=== PATIENT | female | born 1980 | race Caucasian/White ===

== ENCOUNTER 2017-08-28 15:19 | Emergency (ER) | payer OTHER, SELFPAY ==
[2017-08-28 15:46] VITALS: BP 110/74; PULSE 94; RESP 20; TEMP 36.9; O2SAT 99; BMI 18.9
--- NOTE | 2017-08-28 16:36 | HMH.EDUTC ---
[facility] [place] Disposition Clinical Impression: Medication refill Disposition: Home, Self-Care Condition on Discharge: Good Additional Instructions: Levothyroxine refill sent to Clinic pharmacy as you requested. As you know, it will be Wednesday before you can have this filled. Lamictal, abilify and prozac all have one remaining refill. You can request that Clinic pharmacy call and transfer your refill from the old pharmacy to Clinic Trazodone you report having more at home. Use those until you new pt appointment. Dextroamphetamine and zenzedi are both stimulants. I will not refill these. You will need a primary care provider to psychiatrist to do so. If you change your mind about primary care providers and you want me to try to get you in sooner with the [facility] physician group, call and let me know. I have provided Dr. Hood' number so call them wednesday for new patient appt Prescriptions: Levothyroxine Sodium [Levothyroxine 125mcg (0.125mg) Tab] 125 mcg PO DAILY #30 tab Referrals: Maycol Hood MD [Staff Physician] - (if this is where you wish to go, call them Wednesday and make a new patient appt. Keep appt with [facility] on 09/02) Time of Disposition: 16:53 Medical Decision Making - Nimesh Inquiry Pt receiving controlled substance: No Vital Signs: 08/28/17 15:46 08/28/17 16:49 Temperature 98.5 F 98.6 F Temperature Source Temporal Artery Scan Pulse Rate 92 H Pulse Rate [Right Radial] 94 H Respiratory Rate 20 18 Blood Pressure 108/85 Blood Pressure [Right Arm] 110/74 Blood Pressure Mean [Right Arm] 86 Blood Pressure Source [Right Arm] Automatic Cuff Blood Pressure Position [Right Arm] Sitting 02 Sat by Pulse Oximetry 99 Oxygen Delivery Method Room Air Room Air - Reevaluation(s) Reevaluation #1: Discussed list of medications w/ patient. Rvwd all the empty bottles patient brought. Lamictal last filled 07/14 has one refill remaining Abilify last filled 07/14/17, has one refill remaining Prozac last filled 07/14/17, has one refill remaining Trazodone last filled 07/14/17, bottle empty but pt reports she has several more at home from where some nights she doesn't need them so doesn't need refill Levothyroxine last filled 07/14, no refill remaining dextroamphetamine LF 05/31/17 and zenzedi last filled 06/23/17, both with no refills remaining, pt aware stimulants and I will not refill. I don't really need those. That isn't the ones I am worried about. Offered to get patient in to my lpn or medical assistant's primary care office next week. pt politely declined. Wants to try to get appt w/ spouse's PCP, Dr. Hood. [facility] [place] HPI - General Stated complaint: needs refill Time Seen by Provider: 08/28/17 16:36 Mode of Arrival: Family Vehicle Source of Information: Patient Limitations: No Limitations Description of Symptoms (Recalled from Triage Doc. by RN): PT STATES SHE NEEDS A MEDICATION REFILL. HEENT Symptoms (Recalled from RN notes): No Resp Symptoms (Recalled from RN notes): No Skin Symptoms (Recalled from RN notes): No MS Symptoms (Recalled from RN notes): No Functional Status (Recalled from RN notes): NA - History of Present Illness Provider Complaint: Here today for refills of medication. Previously lived here and used a PCP in [place] and [facility]. Moved to another State when her and her spouse seperated and used a PCP and similar type psych facility there. Just moved back here weeks ago when her and her spouse got back together. No PCP currently but has appt with [facility] on 09/02. Out of medications x 1-2 weeks. Requesting refills. denies AH, VH, SI, HI. - Related Data Previous Rx's Medication Instructions Recorded Levothyroxine Sodium 125 mcg PO DAILY #30 tab 08/28/17 [Levothyroxine 125mcg (0.125mg) Tab] Allergies Allergy/AdvReac Type Severity Reaction Status Date / Time No Known Allergies Allergy Verified 08/28/17 15:49 - Worker's Comp Is this a Worker's Comp case?: No [facility] History I h
--- NOTE | 2017-08-28 16:47 | ED_ITS ---
[facility] [place] [place] Disposition Clinical Impression: Medication refill Disposition: Home, Self-Care Condition on Discharge: Good Additional Instructions: Levothyroxine refill sent to Clinic pharmacy as you requested. As you know, it will be Wednesday before you can have this filled. Lamictal, abilify and prozac all have one remaining refill. You can request that Clinic pharmacy call and transfer your refill from the old pharmacy to Clinic Trazodone you report having more at home. Use those until you new pt appointment. Dextroamphetamine and zenzedi are both stimulants. I will not refill these. You will need a primary care provider to psychiatrist to do so. If you change your mind about primary care providers and you want me to try to get you in sooner with the [facility] physician group, call and let me know. I have provided Dr. Hood' number so call them wednesday for new patient appt Prescriptions: Levothyroxine Sodium [Levothyroxine 125mcg (0.125mg) Tab] 125 mcg PO DAILY #30 tab Referrals: Maycol Hood MD [Staff Physician] - (if this is where you wish to go, call them Wednesday and make a new patient appt. Keep appt with [facility] on 09/02) Time of Disposition: 16:53 Medical Decision Making - Nimesh Inquiry Pt receiving controlled substance: No Vital Signs: 08/28/17 15:46 08/28/17 16:49 Temperature 98.5 F 98.6 F Temperature Source Temporal Artery Scan Pulse Rate 92 H Pulse Rate [Right Radial] 94 H Respiratory Rate 20 18 Blood Pressure 108/85 Blood Pressure [Right Arm] 110/74 Blood Pressure Mean [Right Arm] 86 Blood Pressure Source [Right Arm] Automatic Cuff Blood Pressure Position [Right Arm] Sitting 02 Sat by Pulse Oximetry 99 Oxygen Delivery Method Room Air Room Air - Reevaluation(s) Reevaluation #1: Discussed list of medications w/ patient. Rvwd all the empty bottles patient brought. Lamictal last filled 07/14 has one refill remaining Abilify last filled 07/14/17, has one refill remaining Prozac last filled 07/14/17, has one refill remaining Trazodone last filled 07/14/17, bottle empty but pt reports she has several more at home from where some nights she doesn't need them so doesn't need refill Levothyroxine last filled 07/14, no refill remaining dextroamphetamine LF 05/31/17 and zenzedi last filled 06/23/17, both with no refills remaining, pt aware stimulants and I will not refill. I don't really need those. That isn't the ones I am worried about. Offered to get patient in to my medical detail representative's primary care office next week. pt politely declined. Wants to try to get appt w/ spouse's PCP, Dr. Hood. [facility] [place] [place] HPI - General Stated complaint: needs refill Time Seen by Provider: 08/28/17 16:36 Mode of Arrival: Family Vehicle Source of Information: Patient Limitations: No Limitations Description of Symptoms (Recalled from Triage Doc. by RN): PT STATES SHE NEEDS A MEDICATION REFILL. HEENT Symptoms (Recalled from RN notes): No Resp Symptoms (Recalled from RN notes): No Skin Symptoms (Recalled from RN notes): No MS Symptoms (Recalled from RN notes): No Functional Status (Recalled from RN notes): NA - History of Present Illness Provider Complaint: Here today for refills of medication. Previously lived here and used a PCP in [place] and [facility]. Moved to another State when her and her spouse seperated and used a PCP and similar type psych facility there. Just moved back here weeks ago when her and her spouse got back together. No PCP currently but has appt wit
[2017-08-28 16:49] VITALS: BP 108/85; PULSE 92; RESP 18; TEMP 37; O2SAT 100
== END 2017-08-28 16:55 | disposition home or self-care (01) ==
PROVIDERS: Emergency Provider Nurse Practitioner Family
DX: F20.9 Schizophrenia, unspecified (principal); F31.9 Bipolar disorder, unspecified; F32.9 Major depressive disorder, single episode, unspecified; F90.9 Attention-deficit hyperactivity disorder, unspecified type; E03.9 Hypothyroidism, unspecified
CPT/HCPCS: 99201

== ENCOUNTER 2017-08-31 19:35 | Emergency (ER) | payer OTHER, SELFPAY ==
[2017-08-31 19:50] VITALS: BP 118/79; PULSE 80; RESP 16; TEMP 36.9; O2SAT 100; BMI 18.9
--- NOTE | 2017-08-31 20:07 | CT_ITS ---
CT abdomen pelvis wo con CLINICAL INDICATION: Abdominal pain with nausea and vomiting, stomach pain ITS.REASON: vomiting ORDERING PHYSICIAN: Med Da Silva MD PATIENT AGE: 36 years COMPARISON: None TECHNIQUE: Axial images obtained with sagittal and coronal reformats. PROCEDURE: Oral Contrast: None IV Contrast: None . FINDINGS: Lung bases are clear. 5 mm isodensity involving the hepatic dome posteriorly on the right measuring -59 Hounsfield units consistent with a lipoma. No radio opaque gallstones. The spleen, adrenal glands, pancreas, and kidneys have an unremarkable unenhanced CT appearance. No obstructing renal or ureteral calculi. There is mild distention of the stomach with residual food particles and/or secretions There are fluid-filled loops of small and large bowel with scattered air-fluid levels. The bowel does not appear significantly distended. Enterocolitis is considered. There may be some mild mucosal thickening of the duodenum. No free air. No evidence of appendicitis. There are multiple unopacified bowel loops present within the abdomen/pelvis which could obscure or mimic pathology. If symptoms persists, consider repeating exam with IV and oral contrast administration. The uterus has somewhat prominent appearance as does the right adnexa. Pelvic ultrasound may be of further value. There is a small amount fluid in the pelvis. No acute bony anomalies are evident. IMPRESSION: 1. Scattered air-fluid levels in both large and small bowel. Ileus and/or enterocolitis is considered. The stomach is slightly distended with retained food particles. 2. Mildly prominent uterus and right ovary with small amount fluid in the cul-de-sac. Pelvic ultrasound may be of further value. 3. Small lipoma of the liver
--- NOTE | 2017-08-31 20:17 | HMH.EDNVD ---
ED Disposition Clinical Impression: Gastroenteritis, Duodenitis Disposition: Home, Self-Care Condition on Discharge: Good Instructions: DI for Vomiting -- Adult Additional Instructions: fluids and see pcp for follow up Prescriptions: Ondansetron HCl [Zofran 4mg Tab] 4 mg PO TID #20 tab Referrals: Provider,Referral, [Primary Care Provider] - - Critical Care Critical Care Time: No Attestation: On 08/31/17, the high probability of a clinically significant, sudden or life threatening deterioration of the following system(s) required my full and direct attention, intervention and personal management. The time I documented below is in addition to time spent performing reported procedures but includes the following listed in this critical care notation. Medical Decision Making - Medical Records Medical records reviewed: Yes: I reviewed the patient's medical records. - Nimesh Inquiry Pt receiving controlled substance: No Vital Signs: 08/31/17 19:50 09/01/17 00:06 Temperature 98.5 F Temperature Source Oral Pulse Rate [Right Radial] 80 90 Respiratory Rate 16 16 Blood Pressure [Right Arm] 118/79 119/85 Blood Pressure Mean [Right Arm] 92 96 Blood Pressure Source [Right Arm] Automatic Cuff Automatic Cuff Blood Pressure Position [Right Arm] Sitting Sitting 02 Sat by Pulse Oximetry 100 96 Oxygen Delivery Method Room Air Room Air - Lab Data Lab results reviewed: Yes: I reviewed the patient's lab results. Lab Results 08/31/17 20:00: WBC 6.3, RBC 4.80, Hgb 11.1 L, Hct 37.4, MCV 77.8 L, MCH 23.1 L, MCHC 29.7 L, RDW 14.8, Plt Count 339, MPV 7.7, Neut % (Auto) 79.9, Lymph % (Auto) 13.9, Pitt % (Auto) 4.4, Eos % (Auto) 1.5, Baso % (Auto) 0.3, Neut # (Auto) 5.0, Lymph # (Auto) 0.9, [place] # (Auto) 0.3, Eos # (Auto) 0.1, Baso # (Auto) 0.0 08/31/17 20:00: Sodium 137, Potassium 3.4 L, Chloride 102, Carbon Dioxide 28, Anion Gap 10.4, BUN 7, Creatinine 0.80, Estimated Creat Clear 74, Estimated GFR 81, Est GFR ( Amer) 98, Glucose 86, Calcium 8.4 L, Total Bilirubin 0.3, AST 14 L, ALT 17, Alkaline Phosphatase 49, Total Protein 7.4, Albumin 3.7, Globulin 3.7 H, Albumin/Globulin Ratio 1.0 L, Amylase 36, Lipase 118, TSH 15.18 H, Thyroxine (T4) 5.5 08/31/17 20:00: ESR 15 08/31/17 20:22: Urine Color Yellow, Urine Appearance Sl cloudy, Urine pH 6.5, Ur Specific [place] 1.020, Urine Protein Negative, Urine Glucose (UA) Negative, Urine Ketones 1+, Urine Blood Negative, Urine Nitrate Negative, Urine Bilirubin 1+ A, Urine Urobilinogen 0.2, Ur Leukocyte Esterase Trace, Urine RBC Occasional, Urine WBC 10-20, Ur Squamous Epith Cells 5-10, Urine Bacteria 3+, Urine Mucus 3+ 08/31/17 21:39: Stl Aeromonas (PCR) Not detected, Stl C. cayetanensis PCR Not detected, Stool Rotavirus (PCR) Not detected, Stl Adenov F 40/41 PCR Not detected, Stool Astrovirus (PCR) Not detected, Stool Campylobacter PCR Not detected, Stl C.difficile Tox PCR Not detected, Stool Cryptosporidium PCR Not detected, Stl E.coli Shiga Tox PCR Not detected, Stool E coli O157 PCR Not detected, Stl Enterotoxigenic E PCR Not detected, Stool EPEC (PCR) Not detected, Stool EAEC (PCR) Not detected, Stl E. histolytica PCR Not detected, Stool Giardia Lamblia PCR Not detected, Stool Salmonella PCR Not detected, Stool Sapovirus (PCR) Not detected, Stl P. shigelloides PCR Not detected, Stl Shigella/EIEC PCR Not detected, St Y.enterocolitica PCR Not detected, Stool Vibrio (PCR) Not detected, Stl Vibrio cholerae PCR Not detected, Stl Norovirus GI/GII PCR Not detected Result diagrams: 08/31/17 20:00 08/31/17 20:00 Orders (Tests/Meds): ED MEDICATIONS Discontinued Medications Generic Name Dose Route Start Last Admin Trade Name Freq PRN Reason Stop Dose Admin Famotidine 20 mg 09/01/17 00:57 09/01/17 01:06 Pepcid 20mg/2ml Vial IV 09/01/17 00:58 20 mg ONCE ONE Administration Sodium Chloride 1,000 mls @ 999 mls/hr 08/31/17 20:15 08/31/17 20:09 Sod Chlor 0.9% 1000ml Bag
[2017-08-31 20:21] LABS: Basophils % 0.3 % (0.1-2.0); Eosinophils # 0.1 K/mm3 (0.0-0.4); Eosinophils % 1.5 % (0.1-12.0); Hematocrit 37.4 % (37.0-47.0); Hemoglobin 11.1 g/dL (12.2-16.2); Lymphocytes # 0.9 K/mm3 (0.7-4.5); Lymphocytes % 13.9 K/mm3 (10-50); Mean Corpuscular HGB Conc 29.7 g/dL (31.8-35.4); Mean Corpuscular Hemoglobin 23.1 pg (27.0-31.2); Mean Corpuscular Volume 77.8 fl (81-99); Mean Platelet Volume 7.7 fl (7.4-10.4); Monocytes # 0.3 K/mm3 (0.1-1.0); Monocytes % 4.4 % (1.7-9.3); Neutrophils % 79.9 % (37.0-80.0); Platelet Count 339 K/mm3 (142-424); Red Cell Distribution Width 14.8 % (11.5-17.5); White Blood Count 6.3 K/mm3 (4.8-10.8)
[2017-08-31 20:24] LABS: Microscopic, Urine URINE MICROSCOPIC (MICROSCOPIC)
[2017-08-31 20:28] LABS: Appearance,Urine SL CLOUDY (Clear); Blood, Urine Negative (Negative); Color,Urine YELLOW (Yellow); Glucose,Urine (UA) Negative (Negative); Ketones,Urine 1+ (Negative); Leukocyte Esterase,Urine TRACE (Negative); Nitrate,Urine Negative (Negative); PH,Urine 6.5 (5.0-8.5); Protein,Urine Negative (Negative); Urobilinogen,Urine 0.2 EU/dl (0.2)
[2017-08-31 20:31] LABS: Bilirubin,Urine 1+ (Negative)
[2017-08-31 20:42] LABS: Alanine Aminotransferase 17 U/L (12-78); Albumin Level 3.7 gm/dL (3.4-5.0); Alkaline Phosphatase 49 U/L (46-116); Amylase 36 U/L (25-125); Anion Gap 10.4 mEq/L (5-15); Aspartate Amino Transferase 14 U/L (15-37); Bilirubin,Total 0.3 mg/dL (0.2-1.0); Blood Urea Nitrogen 7 mg/dL (7-18); Calcium 8.4 mg/dL (8.5-10.1); Carbon Dioxide 28 mmol/L (21.0-32.0); Chloride 102 mmol/L (98-107); Creatinine Clearance Estimated 74 mL/min (0-300); Estimated Glomerular Filt Rate 81 ml/min (>60); GFR (African American) 98 ML/MIN (>60); Globulin 3.7 gm/dl (1.3-3.2); Glucose 86 mg/dL (74-106); Lipase 118 u/L (73-393); Potassium 3.4 mmoL/L (3.5-5.1); Sodium 137 mmol/L (136-145); T4 (Thyroxine) 5.5 ug/dl (4.7-13.3); Thyroid Stimulating Hormone 15.18 uIU/ml (0.358-3.740); Total Protein,Serum 7.4 gm/dL (6.4-8.2)
[2017-08-31 20:52] LABS: Bacteria,Urine 3+ /lpf; Mucus,Urine 3+ /lpf; RBC,Urine Occasional #/hpf (0-3)
[2017-08-31 21:42] LABS: Adenovirus F 40/41, stool Not Detected (NotDetected); Astrovirus Not Detected (NotDetected); Campylobacter Not Detected (NotDetected); Clostridium Difficile A/B, PCR Not Detected (NotDetected); Cryptosporidium Not Detected (NotDetected); Cyclospora Cayetanesis Not Detected (NotDetected); Entamoeba histolytica Not Detected (NotDetected); Enteroaggregative E coli Not Detected (NotDetected); Enteropathogenic E coli Not Detected (NotDetected); Enterotoxigenic E coli Not Detected (NotDetected); Giardia lamblia Not Detected (NotDetected); Norovirus Not Detected (NotDetected); Plesimonas Shigalloides, PCR Not Detected (NotDetected); Rotavirus A Not Detected (NotDetected); Salmonella, PCR Not Detected (NotDetected); Sapovirus Not Detected (NotDetected); Shiga-like toxin E coli Not Detected (NotDetected); Shigella Enterovasive E coli Not Detected (NotDetected); Vibrio Cholerae Not Detected (NotDetected); Vibrio, PCR Not Detected (NotDetected); Yersinia Entercolitica, PCR Not Detected (NotDetected)
[2017-08-31 22:55] LABS: Erythrocyte Sedimentation Rate 15 mm/hr (0-20)
[2017-09-01 00:06] VITALS: BP 119/85; PULSE 90; RESP 16; O2SAT 96
--- NOTE | 2017-09-01 01:11 | PC.NURSE ---
pt given ice chips per dr christie order to see if patient could tolerate keeping po fluids down
[2017-09-01 01:36] VITALS: BP 121/79; PULSE 85; RESP 17; TEMP 36.6; O2SAT 100
== END 2017-09-01 01:37 | disposition home or self-care (01) ==
PROVIDERS: Emergency Medicine; Emergency Provider Emergency Medicine
DX: K52.9 Noninfective gastroenteritis and colitis, unspecified (principal); K29.80 Duodenitis without bleeding; E03.9 Hypothyroidism, unspecified; F90.9 Attention-deficit hyperactivity disorder, unspecified type; F32.9 Major depressive disorder, single episode, unspecified; Z87.891 Personal history of nicotine dependence; F31.31 Bipolar disorder, current episode depressed, mild; Z79.899 Other long term (current) drug therapy
CPT/HCPCS: 74176; 80053; 81001; 82150; 83690; 84436; 84443; 85025; 85651; 87086; 87507; 96365; 96366; 99211; 99284; J2405

== ENCOUNTER → 2017-10-27 09:01 | Outpatient (CLI) | payer MEDICAID, SELFPAY ==
[2017-10-27 10:03] LABS: Hemoglobin A1C 4.5 % (0.0-7.0)
[2017-10-27 11:01] LABS: Basophils % 0.7 % (0.1-2.0); Eosinophils # 0.2 K/mm3 (0.0-0.4); Eosinophils % 6.1 % (0.1-12.0); Hematocrit 35.7 % (37.0-47.0); Hemoglobin 10.7 g/dL (12.2-16.2); Lymphocytes # 0.9 K/mm3 (0.7-4.5); Lymphocytes % 29.1 K/mm3 (10-50); Mean Corpuscular Volume 76.5 fl (81-99); Mean Platelet Volume 8.1 fl (7.4-10.4); Monocytes # 0.2 K/mm3 (0.1-1.0); Monocytes % 4.7 % (1.7-9.3); Neutrophils # 1.9 K/mm3 (1.8-7.8); Neutrophils % 59.4 % (37.0-80.0); Platelet Count 312 K/mm3 (142-424); Red Blood Count 4.66 M/mm3 (4.20-5.40); Red Cell Distribution Width 15.5 % (11.5-17.5); White Blood Count 3.2 K/mm3 (4.8-10.8)
[2017-10-27 11:14] LABS: Free Thyroxine Index 2.9 ug/dL (5.93-13.13); T4 (Thyroxine) 8.7 ug/dl (4.7-13.3); Triiodothryronine (T3) Uptake 33 % (31-39)
[2017-10-27 11:15] LABS: Alanine Aminotransferase 18 U/L (12-78); Albumin Level 3.7 gm/dL (3.4-5.0); Albumin/Globulin Ratio 1.2 (1.1-1.8); Alkaline Phosphatase 50 U/L (46-116); Anion Gap 13.6 mEq/L (5-15); Aspartate Amino Transferase 14 U/L (15-37); Bilirubin,Total 0.3 mg/dL (0.2-1.0); Blood Urea Nitrogen 12 mg/dL (7-18); Calcium 8.7 mg/dL (8.5-10.1); Carbon Dioxide 26 mmol/L (21.0-32.0); Chloride 106 mmol/L (98-107); Chol/HDL Ratio 2.2 (1-3.5); Cholesterol 187 mg/dL (140-200); Creatinine,Serum 0.74 mg/dL (0.55-1.02); Estimated Glomerular Filt Rate 89 ml/min (>60); GFR (African American) 107 ML/MIN (>60); Globulin 3.2 gm/dl (1.3-3.2); Glucose 88 mg/dL (74-106); HDL Cholesterol 86 mg/dL (29-89); LDL Cholesterol 90 mg/dL (0-130); Potassium 4.6 mmoL/L (3.5-5.1); Sodium 141 mmol/L (136-145); Total Protein,Serum 6.9 gm/dL (6.4-8.2); Triglycerides 55 mg/dL (30-200); VLDL Cholesterol 11 mg/dL (0-40)
== END ==
PROVIDERS: Family Medicine; Visit Provider Psychiatry & Neurology Psychiatry
DX: F25.0 Schizoaffective disorder, bipolar type (principal); E89.0 Postprocedural hypothyroidism
CPT/HCPCS: 36415; 80053; 80061; 83036; 84436; 84443; 84479; 85025

== ENCOUNTER → 2018-01-27 12:49 | Outpatient (CLI) | payer MEDICAID, SELFPAY ==
--- NOTE | 2018-01-27 12:52 | US_ITS ---
US transvaginal HISTORY: Dysfunctional uterine bleeding, painful intercourse ITS.REASON: dub ORDERING PHYSICIAN: Praful Recio MD PATIENT AGE: 37 years Comparison: None FINDINGS: The uterus is 10 x 5 x 7 cm. The endometrium is thickened at 13 mm. There is a small cystic area within the endometrium. This measures 7 x 5 mm. This is nonspecific but could even represent a gestational sac. Please correlate with test. The left ovary is 3 x 2 cm. Blood flow is present. There are small follicles involving the left ovary along with a 2.3 x 1.4 cm ovarian cyst. The right ovary is 3.9 x 2.4 cm with multiple small follicles and exophytic 1.8 cm cyst. Blood flow is present No cul-de-sac fluid apparent. IMPRESSION: 1. Bulky uterus with thickened endometrium. 7 mm cystic area within the endometrial cavity nonspecific. Please correlate with test to exclude a gestational sac. 2. 2.3 cm right ovarian cyst and 1.8 cm left ovarian cyst
== END ==
PROVIDERS: PCP Family Medicine; Visit Provider Obstetrics & Gynecology
DX: N93.8 Other specified abnormal uterine and vaginal bleeding (principal)
CPT/HCPCS: 76830

== ENCOUNTER → 2018-02-02 12:26 | Outpatient (CLI) | payer MEDICAID, SELFPAY ==
[2018-02-02 12:51] LABS: Basophils % 0.4 % (0.1-2.0); Eosinophils # 0.2 K/mm3 (0.0-0.4); Eosinophils % 3.6 % (0.1-12.0); Hematocrit 41.7 % (37.0-47.0); Hemoglobin 13.6 g/dL (12.2-16.2); Lymphocytes # 1.2 K/mm3 (0.7-4.5); Lymphocytes % 29.3 K/mm3 (10-50); Mean Corpuscular HGB Conc 32.6 g/dL (31.8-35.4); Mean Corpuscular Hemoglobin 28.9 pg (27.0-31.2); Mean Corpuscular Volume 88.9 fl (81-99); Mean Platelet Volume 7.5 fl (7.4-10.4); Monocytes # 0.3 K/mm3 (0.1-1.0); Monocytes % 7.9 % (1.7-9.3); Neutrophils # 2.4 K/mm3 (1.8-7.8); Neutrophils % 58.8 % (37.0-80.0); Platelet Count 250 K/mm3 (142-424); Red Blood Count 4.69 M/mm3 (4.20-5.40); Red Cell Distribution Width 14.6 % (11.5-17.5); White Blood Count 4.1 K/mm3 (4.8-10.8)
[2018-02-02 13:33] LABS: Free Thyroxine Index 2.9 ug/dL (5.93-13.13); T4 (Thyroxine) 8.5 ug/dl (4.7-13.3); Thyroid Stimulating Hormone 2.74 uIU/ml (0.358-3.740); Triiodothryronine (T3) Uptake 34 % (31-39)
== END ==
PROVIDERS: PCP Family Medicine; Visit Provider Obstetrics & Gynecology
DX: N93.8 Other specified abnormal uterine and vaginal bleeding (principal)
CPT/HCPCS: 36415; 84436; 84443; 84479; 85025

== ENCOUNTER → 2018-03-08 14:36 | Outpatient (CLI) | payer MEDICAID, SELFPAY ==
--- NOTE | 2018-03-08 14:45 | US_ITS ---
US transvaginal HISTORY: Follow-up ovarian cyst ITS.REASON: f/u ovarian cyst ORDERING PHYSICIAN: Praful Recio MD PATIENT AGE: 37 years Comparison: 01/27/2018 FINDINGS: The uterus measures 8.7 x 5.3 x 6.2 cm. The combined endometrial thickness is 1.4 cm. Endometrium is thickened mostly in the fundal region. And is similar when compared to the previous exam. Previously there was a cystic area within endometrial canal which is not present on today's exam. The left ovary is 3.8 x 2.6 cm and contains multiple small follicles without a dominant cyst. The right ovary is 3.8 x 2.6 cm and contains multiple follicles and a 13mm cyst. No cul-de-sac fluid is evident. IMPRESSION: 1. Focally thickened endometrium within the fundal area. This is nonspecific and may be related to endometrial thickening versus a polyp or blood within endometrial canal. The cystic area previously noted in the endometrium is no longer apparent. 2. Polycystic appearance of the ovaries with a 13 mm right ovarian cyst
== END ==
PROVIDERS: PCP Family Medicine; Visit Provider Obstetrics & Gynecology
DX: N83.209 Unspecified ovarian cyst, unspecified side (principal)
CPT/HCPCS: 76830

== ENCOUNTER → 2018-03-25 10:25 | Outpatient (CLI) | payer MEDICAID, SELFPAY ==
[2018-03-25 10:29] LABS: Microscopic, Urine URINE MICROSCOPIC (MICROSCOPIC)
[2018-03-25 11:03] LABS: Appearance,Urine CLEAR (Clear); Bilirubin,Urine Negative (Negative); Blood, Urine Negative (Negative); Color,Urine YELLOW (Yellow); Glucose,Urine (UA) Negative (Negative); Ketones,Urine Negative (Negative); Leukocyte Esterase,Urine Negative (Negative); Nitrate,Urine Negative (Negative); PH,Urine 5.5 (5.0-8.5); Protein,Urine Negative (Negative); Specific Gravity, Urine >= 1.030 (1.005-1.030); Urobilinogen,Urine 0.2 EU/dl (0.2)
[2018-03-25 11:24] LABS: Bacteria,Urine 1+ /lpf; WBC,Urine Occasional #/hpf (0-3)
[2018-03-25 11:34] LABS: Eosinophils # 0.2 K/mm3 (0.0-0.4); Eosinophils % 5.2 % (0.1-12.0); Hematocrit 37.7 % (37.0-47.0); Hemoglobin 12.4 g/dL (12.2-16.2); Lymphocytes # 0.9 K/mm3 (0.7-4.5); Lymphocytes % 30.8 K/mm3 (10-50); Mean Corpuscular HGB Conc 32.8 g/dL (31.8-35.4); Mean Corpuscular Hemoglobin 29.2 pg (27.0-31.2); Mean Platelet Volume 7.5 fl (7.4-10.4); Monocytes # 0.2 K/mm3 (0.1-1.0); Monocytes % 7.9 % (1.7-9.3); Neutrophils # 1.7 K/mm3 (1.8-7.8); Neutrophils % 55.2 % (37.0-80.0); Platelet Count 231 K/mm3 (142-424); Red Blood Count 4.24 M/mm3 (4.20-5.40); Red Cell Distribution Width 11.8 % (11.5-17.5)
[2018-03-25 11:38] LABS: Alanine Aminotransferase 27 U/L (12-78); Albumin Level 3.3 gm/dL (3.4-5.0); Albumin/Globulin Ratio 1.1 (1.1-1.8); Alkaline Phosphatase 46 U/L (46-116); Anion Gap 9.6 mEq/L (5-15); Aspartate Amino Transferase 20 U/L (15-37); Bilirubin,Total 0.2 mg/dL (0.2-1.0); Blood Urea Nitrogen 8 mg/dL (7-18); Calcium 8.4 mg/dL (8.5-10.1); Carbon Dioxide 29 mmol/L (21.0-32.0); Chloride 106 mmol/L (98-107); Creatinine,Serum 0.76 mg/dL (0.55-1.02); Estimated Glomerular Filt Rate 86 ml/min (>60); GFR (African American) 104 ML/MIN (>60); Globulin 2.9 gm/dl (1.3-3.2); Glucose 71 mg/dL (74-106); HCG,Quantitative 0 mIU/mL; Potassium 3.6 mmoL/L (3.5-5.1); Sodium 141 mmol/L (136-145); Total Protein,Serum 6.2 gm/dL (6.4-8.2)
== END ==
PROVIDERS: PCP Family Medicine; Visit Provider Obstetrics & Gynecology
DX: Z01.818 Encounter for other preprocedural examination (principal); N93.8 Other specified abnormal uterine and vaginal bleeding
CPT/HCPCS: 36415; 80053; 81001; 84702; 85025

== ENCOUNTER 2019-05-18 14:00 | Outpatient (RCR) | payer OTHER, SELFPAY ==
--- NOTE | 2019-05-09 15:37 | HMH.OTOPEV ---
OT Inpatient Evaluation Rehab OT Outpatient Eval Start: 05/09/19 15:24 Freq: Status: Active Protocol: Document 05/09/19 15:24 TFRY (Rec: 05/09/19 15:37 TFRY [id number]) Electronically Signed By Sheeba Cintron OT 05/09/19 15:24 Outpatient Therapy Subjective History Subjective History This is a 38 year old right handed female referred to occupational therapy for rotator cuff syndrome in left. Patient reports that she injuried her shoulder lifting fries and placing in cooler overhead. Reports that the injuried occurred on 04/10/[address] Hood last week. Chief Complaint Pain Symptom Type Ache,Burning Symptoms Relieved By Rest/Positioning Symptoms Aggravated By Lifting Prior Functional Limitations None Current Functional Limitations Reaching,Lifting,Dressing, Sleeping Symptom Description Constant but Variable Level of pain today (0-10) 3 Pain scale - at its best (0-10) 2 Pain scale - at its worst (0-10) 5 Shoulder/Elbow Eval Shoulder Objective Measurements Palpation Tenderness tenderness shoulder exam standard left Shoulder Palpation Findings Tenderness Shoulder ROM Left Shoulder Abduction Active Range of WFL Motion (degrees) Shoulder Flexion Active Range of Motion WFL (degrees) Query Text: Shoulder External Rotation Active Range WFL of Motion (degrees) Shoulder Internal Rotation Active Range WFL of Motion (degrees) Shoulder Extension Active Range of WFL Motion (degrees) pain with active ROM shoulder exam left standard full ROM shoulder exam standard left Shoulder MMT Shoulder Abduction Strength Grade 3+ Fair+ Shoulder Extension Strength Grade 3+ Fair+ Shoulder Flexion Strength Grade 3+ Fair+ Shoulder Horizontal Abduction Strength 3+ Fair+ Grade Shoulder Horizontal Adduction Strength 3+ Fair+ Grade Shoulder External Rotation Strength 3+ Fair+ Grade Shoulder Internal Rotation Strength 3+ Fair+ Grade Shoulder Strength Patient Testing Sitting Position Shoulder Special Tests impingement sign present shoulder exam left standard Acromioclavicular Joint Compression Test Negative Left Shoulder Empty Can (Supraspinatus) Test Negative Left Shoulder Shannon-Lalo Impin
== END 2019-05-18 14:05 | disposition home or self-care (01) ==
LOC: OT 14:00
PROVIDERS: Visit Provider Family Medicine
DX: M75.102 Unspecified rotator cuff tear or rupture of left shoulder, not specified as traumatic (principal)
CPT/HCPCS: 97110; 97165

== ENCOUNTER 2019-12-20 19:41 | Emergency (ER) | payer OTHER, SELFPAY ==
[2019-12-20 20:15] VITALS: BP 120/70; PULSE 92; RESP 16; TEMP 36.7; O2SAT 98; BMI 14.0
--- NOTE | 2019-12-20 20:24 | HMH.EDUTC ---
[facility] [place] Disposition Clinical Impression: Poison sachi Disposition: Home, Self-Care Condition on Discharge: Good Instructions: DI for Poison Sachi Allergy Additional Instructions: Avoid contact with the offending substance (poison sachi). Don't start the oral steroids until tomorrow. Don't put the topical steroids (triamcinolone) on your face or your groin. Follow up with your regular doctor. GO TO THE ER FOR ANY WORSENING SYMPTOMS OR CONCERNS Prescriptions: methylPREDNISolone [Medrol] 4 mg PO DIRECTED 6 Days #21 tab.ds.pk Transmission Status: Received by [id number] Triamcinolone Acetonide 1 applicatio TP TIDP PRN 7 Days #1 tube PRN Reason: Itching Transmission Status: Received by [id number] Referrals: Maycol Hood MD [Primary Care Provider] - Time of Disposition: 20:30 Medical Decision Making - Medical Records Medical records reviewed: No: I reviewed the patient's medical records. - Nimesh Inquiry Pt receiving controlled substance: No Vital Signs: 12/20/19 20:15 Temperature 98.1 F Temperature Source Oral Pulse Rate [Right Brachial] 92 H Respiratory Rate 16 Blood Pressure [Right Arm] 120/70 Blood Pressure Mean [Right Arm] 86 Blood Pressure Source [Right Arm] Automatic Cuff Blood Pressure Position [Right Arm] Sitting 02 Sat by Pulse Oximetry 98 Oxygen Delivery Method Room Air Orders (Tests/Meds): ED MEDICATIONS Discontinued Medications Generic Name Dose Route Start Last Admin Trade Name Freq PRN Reason Stop Dose Admin Methylprednisolone Sodium Succinate 125 mg 12/20/19 20:25 12/20/19 20:42 Solu-Medrol 125mg/2ml Vial IM 12/20/19 20:26 125 mg ONCE ONE Administration [facility] [place] HPI - General Stated complaint: poison sachi on leg and stomach Time Seen by Provider: 12/20/19 20:25 Mode of Arrival: Ambulatory Source of Information: Patient Limitations: No Limitations Description of Symptoms (Recalled from Triage Doc. by RN): Pt has poison sachi on stomach and legs HEENT Symptoms (Recalled from RN notes): No Resp Symptoms (Recalled from RN notes): No Skin Symptoms (Recalled from RN notes): Yes (poison sachi) MS Symptoms (Recalled from RN notes): No Functional Status (Recalled from RN notes): na - History of Present Illness Provider Complaint: She c/o itching and rash on her face, abdomen and right leg. 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 - Related Data Home Medications Medication Instructions Recorded Confirmed levothyroxine 112 mcg capsule 112 mcg PO DAILY 01/25/18 03/29/19 Previous Rx's Medication Instructions Recorded Ondansetron [Zofran 4mg ODT] 4 mg PO Q8HP PRN #20 tab.rapdis 03/29/19 Phenazopyridine HCl [Pyridium 200 pow PO TID #6 tab 03/29/19 200mg Tablet] Sulfamethoxazole/Trimethoprim 1 each PO BID 7 Days #14 tab 03/29/19 [Bactrim DS tablet] Ciprofloxacin HCl [Cipro 500mg 500 mg PO BID 10 Days #20 tab 04/02/19 Tab] Triamcinolone Acetonide 1 applicatio TP TIDP PRN 7 Days #1 12/20/19 tube methylPREDNISolone [Medrol] 4 mg PO DIRECTED 6 Days #21 12/20/19 tab.ds.pk Allergies Allergy/AdvReac Type Severity Reaction Status Date / Time fluoxetine [From Prozac] Allergy Verified 04/15/18 09:04 - Worker's Comp Is this a Worker's Comp case?: No [facility] History - Hepatitis A Screen Drug use history?: No High risk sexual behaviors?: No History of sexually transmitted infection?: No Currently employed?: No Childcare worker?: No Do you have indoor plumbing?: Yes Do you have electricity?: Yes Attestation statement:: This patient has been screened for Hepatitis A risk factors. I have reviewed the patient's past medical history: Yes Medical History: Reports:: Anxiety, Cancer (thyroid), Depression Denies:: Diabetes Mellitus Type 1, Diabetes Mellitus Type 2, Hypertension, Internal Pacemaker, MRSA, Seizures Other Medical History: Reports: Hypothy
[2019-12-20 20:57] VITALS: BP 112/60; PULSE 70; RESP 16; TEMP 36.8; O2SAT 98
== END 2019-12-20 20:57 | disposition home or self-care (01) ==
PROVIDERS: Emergency Provider Nurse Practitioner Family; PCP Family Medicine
DX: L23.7 Allergic contact dermatitis due to plants, except food (principal); E03.9 Hypothyroidism, unspecified; F41.9 Anxiety disorder, unspecified; Z79.899 Other long term (current) drug therapy
CPT/HCPCS: 96372; 99201

== ENCOUNTER → 2020-05-06 15:31 | Outpatient (CLI) | payer OTHER, SELFPAY ==
[2020-05-08 15:40] LABS: Covid-19 Nasal PCR Sendout Lex Not Detected
== END ==
PROVIDERS: PCP Family Medicine; Visit Provider Family Medicine
DX: Z03.818 Encounter for observation for suspected exposure to other biological agents ruled out (principal)
CPT/HCPCS: U0004

== ENCOUNTER → 2021-04-29 16:18 | Outpatient (CLI) | payer OTHER, SELFPAY | PROVIDERS: PCP Family Medicine; Visit Provider Nurse Practitioner | DX: Z20.822 Contact with and (suspected) exposure to COVID-19 (principal) | CPT/HCPCS: C9803; U0003; U0005 ==

== ENCOUNTER 2021-06-08 15:24 | Emergency (ER) | payer OTHER, SELFPAY ==
[2021-06-08 16:20] VITALS: BP 140/85; PULSE 87; RESP 18; TEMP 36.9; O2SAT 98; BMI 18.1
--- NOTE | 2021-06-08 17:12 | HMH.EDUTC ---
[facility] [place] Disposition Clinical Impression: STD exposure Disposition: Home, Self-Care Condition on Discharge: Good Instructions: Facts About Sexually Transmitted Infections, How to Detect and Treat STDs Additional Instructions: follow up with pcp in 2 weeks for test results if any symptoms return or be seen in ed Referrals: Maycol Hood MD [Primary Care Provider] - Time of Disposition: 17:19 Medical Decision Making - Nimesh Inquiry Pt receiving controlled substance: No Vital Signs: 06/08/21 16:20 Temperature 98.4 F Temperature Source Oral Pulse Rate [Right Brachial] 87 Respiratory Rate 18 Blood Pressure [Right Arm] 140/85 Blood Pressure Mean [Right Arm] 103 Blood Pressure Source [Right Arm] Automatic Cuff Blood Pressure Position [Right Arm] Sitting 02 Sat by Pulse Oximetry 98 Oxygen Delivery Method Room Air Orders (Tests/Meds): ORDERS Category Date Time Status Hepatitis Panel (4) Stat Lab 06/08/21 16:48 Ordered Rapid Plasma Reagin Ab Titer Stat Lab 06/08/21 17:01 Ordered [facility] [place] HPI - General Chief complaint: Urgent Treatment Center Stated complaint: poss STD Time Seen by Provider: 06/08/21 17:12 Mode of Arrival: Ambulatory Source of Information: Patient Limitations: No Limitations Description of Symptoms (Recalled from Triage Doc. by RN): PATIENT WANTING TESTED FOR STDs D/T HAVING SYMPTOMS HEENT Symptoms (Recalled from RN notes): No Resp Symptoms (Recalled from RN notes): No Skin Symptoms (Recalled from RN notes): No MS Symptoms (Recalled from RN notes): No Functional Status (Recalled from RN notes): WNL - History of Present Illness Provider Complaint: 40 yr old female presents for std testing, pt states has a sore on his penis and is being worked up with the health dept and she just wants to make sure. pt states she had pap and everything was good - Related Data Home Medications Medication Instructions Recorded Confirmed levothyroxine 112 mcg capsule 112 mcg PO DAILY 01/25/18 06/08/21 Allergies Allergy/AdvReac Type Severity Reaction Status Date / Time fluoxetine [From Prozac] Allergy Verified 04/15/18 09:04 - Worker's Comp Is this a Worker's Comp case?: No [facility] History - Hepatitis A Screen Drug use history?: No High risk sexual behaviors?: No History of sexually transmitted infection?: No Currently employed?: No Childcare worker?: No Do you have indoor plumbing?: Yes Do you have electricity?: Yes Attestation statement:: This patient has been screened for Hepatitis A risk factors. I have reviewed the patient's past medical history: Yes Medical History: Reports:: Anxiety, Cancer (thyroid), Depression Denies:: Diabetes Mellitus Type 1, Diabetes Mellitus Type 2, Hypertension, Internal Pacemaker, MRSA, Seizures Other Medical History: Reports: Hypothyroidism, Thyroid Disease, Other. Denies: Blood Transfusion Reaction Comment: HPV positive Laterality Cases: Bilateral: Other Other Surgeries: Yes: , Thyroidectomy, Tubal Ligation, Other. No: Pacemaker Amputation: No Fractures: No Comment: . Thyroidectomy. Tubal Ligation. DX. hysteroscopy, with fractional D&C---03/31/2018 - Social History Smoking Status: Never smoker Alcohol Intake: never Alcohol Intake Frequency:: other Substance Use Type: denies use Occupational Status: employed Housing: house Household Members: spouse - Psychiatric History Pschychiatric History:: Reports:: Anxiety, Depression Family Hx:: No significant family history Comment: 2006- , male, 8lb. breast. 2009- Primary , male, 7lb., breast, PPTL ROS Obtained: Yes Systems reviewed as appropriate & no additional complaints - Constitutional Constitutional: Reports system reviewed and no additional complaints, except as docu, Denies fever(s) - Eyes Eyes: Reports system reviewed and no additional complaints, except as docu, Denies blurry vision - ENT Ears, Nose, Mouth, and Throat: Reports sys
[2021-06-08 17:16] VITALS: BP 140/85; PULSE 87; RESP 18; TEMP 36.9; O2SAT 98
[2021-06-10 10:25] LABS: HSV 2 IgG, Type Spec <0.91 index (0.00-0.90); Hep A Ab, IgM Negative (Negative); Hepatitis B Core Antibody IgM Negative (Negative); Hepatitis B Surface Antigen Negative (Negative); Hepatitis C Antibody <0.1 s/co ratio (0.0-0.9); Rapid Plasma Reagin Ab Titer Non Reactive (NonRea<1:1)
== END 2021-06-08 17:34 | disposition home or self-care (01) ==
PROVIDERS: Emergency Provider Nurse Practitioner Family; PCP Family Medicine
DX: Z20.2 Contact with and (suspected) exposure to infections with a predominantly sexual mode of transmission (principal); F41.8 Other specified anxiety disorders; E03.9 Hypothyroidism, unspecified
CPT/HCPCS: 80074; 86592; 86695; 86790; 99202; G0463

== ENCOUNTER 2021-08-08 14:38 | Emergency (ER) | payer OTHER, SELFPAY ==
[2021-08-08 16:41] VITALS: BP 141/84; PULSE 88; RESP 18; TEMP 37.6; O2SAT 100; BMI 19.5
[2021-08-08 16:45] LABS: UTC Strep Screen (Rapid) Negative (Negative)
--- NOTE | 2021-08-08 17:20 | HMH.EDUTC ---
[facility] [place] Disposition Clinical Impression: Bronchitis, Viral syndrome Pharyngitis Qualifiers: Pharyngitis/tonsillitis etiology: unspecified etiology Qualified Code(s): J02.9 - Acute pharyngitis, unspecified Disposition: Home, Self-Care Condition on Discharge: Good Instructions: DI for Pharyngitis/Tonsillopharyngitis -- Adult, DI for Acute Bronchitis, DI for COVID-19 (Suspected or Confirmed ), Preventing the Spread of Coronavirus Discharge Instructions Additional Instructions: Drink plenty of fluids. Take tylenol or ibuprofen for pain or fever. Take the medications as directed. Follow up with your regular doctor. GO TO THE ER FOR ANY WORSENING SYMPTOMS Quarantine until you know the results of your covid-19 test. Notify your school or workplace of your results and follow their instructions regarding return to work/school. Prescriptions: methylPREDNISolone [Medrol] 4 mg PO DIRECTED 6 Days #21 packet Transmission Status: Received by [facility] Azithromycin [Z-Malachi 250mg Tab*] 250 mg PO UD DOSE PK #6 tab Transmission Status: Received by [facility] Referrals: Maycol Hood MD [Primary Care Provider] - Forms: Work/School Release Time of Disposition: 17:57 Medical Decision Making - Medical Records Medical records reviewed: No: I reviewed the patient's medical records. - Nimesh Inquiry Pt receiving controlled substance: No Vital Signs: 08/08/21 16:41 08/08/21 18:03 Temperature 99.6 F 99.6 F Temperature Source Oral Pulse Rate 88 Pulse Rate [Left] 88 Respiratory Rate 18 18 Blood Pressure 141/84 H Blood Pressure [Right Arm] 141/84 H Blood Pressure Mean [Right Arm] 103 02 Sat by Pulse Oximetry 100 - Lab Data Lab Results 08/08/21 16:36: Strep Scn Rapid Clinic Negative [facility] [place] HPI - General Stated complaint: congestion, hoarness Time Seen by Provider: 08/08/21 17:20 Mode of Arrival: Ambulatory Source of Information: Patient Limitations: No Limitations Description of Symptoms (Recalled from Triage Doc. by RN): pt c/o hoarseness, congestion, sore throat and burning in her lungs. HEENT Symptoms (Recalled from RN notes): Yes Resp Symptoms (Recalled from RN notes): Yes Skin Symptoms (Recalled from RN notes): No MS Symptoms (Recalled from RN notes): No Functional Status (Recalled from RN notes): wnl - History of Present Illness Provider Complaint: She states that since yesterday she has had chest congestion, cough with yellowish sputum, sore throat and a low grade fever. She denies any known exposure to covid-19. She has not been vaccinated against covid-19. - Related Data Home Medications Medication Instructions Recorded Confirmed levothyroxine 112 mcg capsule 112 mcg PO DAILY 01/25/18 06/08/21 Previous Rx's Medication Instructions Recorded Azithromycin [Z-Malachi 250mg Tab*] 250 mg PO UD DOSE PK #6 tab 08/08/21 methylPREDNISolone [Medrol] 4 mg PO DIRECTED 6 Days #21 08/08/21 packet Allergies Allergy/AdvReac Type Severity Reaction Status Date / Time fluoxetine [From Prozac] Allergy Verified 04/15/18 09:04 - Worker's Comp Is this a Worker's Comp case?: No H History - Hepatitis A Screen Drug use history?: No High risk sexual behaviors?: No History of sexually transmitted infection?: No Currently employed?: No Childcare worker?: No Do you have indoor plumbing?: Yes Do you have electricity?: Yes Attestation statement:: This patient has been screened for Hepatitis A risk factors. I have reviewed the patient's past medical history: Yes Medical History: Reports:: Anxiety, Cancer (thyroid), Depression Denies:: Diabetes Mellitus Type 1, Diabetes Mellitus Type 2, Hypertension, Internal Pacemaker, MRSA, Seizures Other Medical History: Reports: Hypothyroidism, Thyroid Disease, Other. Denies: Blood Transfusion Reaction Comment: HPV positive Laterality Cases: Bilateral: Other Other Surgeries: Yes: , Thyroidectomy, Tu
[2021-08-08 18:03] VITALS: BP 141/84; PULSE 88; RESP 18; TEMP 37.6
== END 2021-08-08 18:07 | disposition home or self-care (01) ==
PROVIDERS: Emergency Provider Nurse Practitioner Family; PCP Family Medicine
DX: J20.9 Acute bronchitis, unspecified (principal); B34.9 Viral infection, unspecified; J02.9 Acute pharyngitis, unspecified
CPT/HCPCS: 87880; 99203; C9803; G0463; U0003; U0005

== ENCOUNTER 2021-08-17 21:18 | Emergency (ER) | payer OTHER, SELFPAY ==
[2021-08-17 21:20] VITALS: BP 173/93; PULSE 81; RESP 17; TEMP 37.1; O2SAT 99; BMI 19.7
[2021-08-17 23:31] VITALS: BP 121/71; PULSE 85; O2SAT 98
[2021-08-17 23:42] LABS: Basophils # 0.2 K/mm3 (0-0.2); Basophils % 1.5 % (0.1-2.0); Eosinophils # 0.2 K/mm3 (0.0-0.4); Eosinophils % 1.8 % (0.1-12.0); Hematocrit 37.2 % (37.0-47.0); Hemoglobin 11.8 g/dL (12.2-16.2); Lymphocytes # 1.7 K/mm3 (0.7-4.5); Lymphocytes % 15.8 % (10-50); Mean Corpuscular HGB Conc 31.7 g/dL (31.8-35.4); Mean Corpuscular Hemoglobin 27.2 pg (27.0-31.2); Mean Corpuscular Volume 85.6 fl (81-99); Mean Platelet Volume 8.4 fl (7.4-10.4); Monocytes # 0.7 K/mm3 (0.1-1.0); Monocytes % 6.2 % (1.7-9.3); Neutrophils # 7.9 K/mm3 (1.8-7.8); Neutrophils % 74.8 % (37.0-80.0); Platelet Count 355 K/mm3 (142-424); Red Blood Count 4.35 M/mm3 (4.20-5.40); Red Cell Distribution Width 14.6 % (11.5-17.5); White Blood Count 10.5 K/mm3 (4.8-10.8)
[2021-08-17 23:46] LABS: Alanine Aminotransferase 17 U/L (12-78); Albumin/Globulin Ratio 1.5 (1.1-1.8); Alkaline Phosphatase 56 U/L (38-126); Anion Gap 12.1 mEq/L (5-15); Aspartate Amino Transferase 26 U/L (14-36); Bilirubin,Total 0.2 mg/dl (0.2-1.3); Blood Urea Nitrogen 9 mg/dl (7-17); Calcium 8.7 mg/dl (8.4-10.2); Carbon Dioxide 27 mmol/L (22.0-30.0); Chloride 103 mmol/L (98-107); Creatinine Clearance Estimated 93 mL/min (50-200); Estimated Glomerular Filt Rate 93 ml/min (>60); GFR (African American) 112 ML/MIN (>60); Globulin 2.6 g/dL (1.3-3.2); Glucose 72 mg/dl (74-100); Lactic Acid 0.8 mmol/L (0.7-2.1); Potassium 3.1 mmoL/L (3.5-5.1); Sodium 139 mmol/L (136-145); Total Protein,Serum 6.6 g/dl (6.3-8.2)
[2021-08-17 23:52] LABS: C-Reactive Protein 13.8 mg/L (0-4)
[2021-08-18] VITALS: BP 120/81; PULSE 91; O2SAT 99
[2021-08-18 00:05] LABS: Procalcitonin 0.041 ng/mL (0.0-2.0)
[2021-08-18 00:10] LABS: Erythrocyte Sedimentation Rate 18 mm/hr (0-20)
--- NOTE | 2021-08-18 00:22 | HMH.EDDENT ---
ED Disposition Clinical Impression: Infected dental caries, Pain, dental Disposition: Home, Self-Care Condition on Discharge: Good Instructions: DI for Dental Pain Additional Instructions: use meds and call pcp for follow up Prescriptions: cephALEXin [cephALEXin 500mg capsule*] 500 mg PO TID #30 cap Transmission Status: [facility] to [facility] Referrals: Maycol Hood MD [Primary Care Provider] - - Critical Care Critical Care Time: No Attestation: On 08/17/21, the high probability of a clinically significant, sudden or life threatening deterioration of the following system(s) required my full and direct attention, intervention and personal management. The time I documented below is in addition to time spent performing reported procedures but includes the following listed in this critical care notation. Medical Decision Making - Medical Records Medical records reviewed: Yes: I reviewed the patient's medical records. - Nimesh Inquiry Pt receiving controlled substance: No Vital Signs: 08/17/21 21:20 Temperature 98.7 F Temperature Source Oral Pulse Rate [Right] 81 Respiratory Rate 17 Blood Pressure [Right Arm] 173/93 H Blood Pressure Mean [Right Arm] 119 Blood Pressure Source [Right Arm] Automatic Cuff 02 Sat by Pulse Oximetry 99 Oxygen Delivery Method Room Air - Lab Data Lab results reviewed: Yes: I reviewed the patient's lab results. Lab Results 08/17/21 23:00: WBC 10.5, RBC 4.35, Hgb 11.8 L, Hct 37.2, MCV 85.6, MCH 27.2, MCHC 31.7 L, RDW 14.6, Plt Count 355, MPV 8.4, Neut % (Auto) 74.8, Lymph % (Auto) 15.8, Payne % (Auto) 6.2, Eos % (Auto) 1.8, Baso % (Auto) 1.5, Neut # (Auto) 7.9 H, Lymph # (Auto) 1.7, Payne # (Auto) 0.7, Eos # (Auto) 0.2, Baso # (Auto) 0.2, ESR 18 08/17/21 23:00: Sodium 139, Potassium 3.1 L, Chloride 103, Carbon Dioxide 27, Anion Gap 12.1, BUN 9, Creatinine 0.70, Estimated Creat Clear 93, Estimated GFR 93, Est GFR ( Amer) 112, Glucose 72 L, Calcium 8.7, Total Bilirubin 0.2, AST 26, ALT 17, Alkaline Phosphatase 56, C-Reactive Protein 13.8 H, Total Protein 6.6, Albumin 4.0, Globulin 2.6, Albumin/Globulin Ratio 1.5, Procalcitonin 0.041 08/17/21 23:00: Lactate 0.8 Result diagrams: 08/17/21 23:00 08/17/21 23:00 Orders (Tests/Meds): ED MEDICATIONS Generic Name Dose Route Start Last Admin Trade Name Freq PRN Reason Stop Dose Admin Ceftriaxone Sodium 1 gm/ 50 mls @ 100 mls/hr 08/18/21 00:30 08/18/21 00:36 Sodium Chloride IV 09/01/21 00:29 100 mls/hr Q24H SHERRELL Administration Sodium Chloride 1,000 mls @ 999 mls/hr 08/18/21 00:45 08/18/21 00:49 Sod Chlor 0.9% 1000ml Bag IV 08/18/21 01:45 999 mls/hr .Q1H1M SHERRELL Administration Discontinued Medications Generic Name Dose Route Start Last Admin Trade Name Freq PRN Reason Stop Dose Admin Ketorolac Tromethamine 30 mg 08/18/21 00:23 08/17/21 23:00 Ketorolac 30mg/Ml Vial IV 08/18/21 00:24 30 mg ONCE ONE Administration Methylprednisolone Sodium Succinate 125 mg 08/18/21 00:23 08/18/21 00:36 Methylprednisolone Sod Succ 125mg Vial IV 08/18/21 00:24 125 mg ONCE ONE Administration ORDERS Category Date Time Status CT facial bones w con Stat Cat Scan 08/17/21 23:[address] soft tissue neck w con Stat Cat Scan 08/17/21 23:28 Ordered Blood Culture Stat Micro 08/17/21 23:00 Received Medical Decision Narrative: use meds and see pcp and dentist as pt with dental infection Dental HPI - General Chief complaint: Dental/Oral Stated complaint: swelling in left jaw Time Seen by Provider: 08/18/21 00:22 Mode of Arrival: Family Vehicle Source of Information: Patient, Medical Record Limitations: No Limitations Description of Symptoms (Recalled from ER Triage Doc. by RN): Pt c/o Left lower jaw swelling that began this morning and has been radiating down her left side of neck. She has been dealing with a bad tooth that the dentist fixed 2 mn ago and began giving her p
[2021-08-18 00:30] VITALS: BP 118/72; PULSE 80; O2SAT 100
[2021-08-18 01:00] VITALS: BP 122/84; PULSE 77; O2SAT 97
[2021-08-18 01:30] VITALS: BP 115/73; PULSE 70; O2SAT 99
[2021-08-18 01:49] VITALS: BP 114/62; PULSE 75; RESP 18; TEMP 36.7; O2SAT 99
== END 2021-08-18 02:21 | disposition home or self-care (01) ==
PROVIDERS: Emergency Provider Emergency Medicine; PCP Family Medicine
DX: K02.9 Dental caries, unspecified (principal); M27.2 Inflammatory conditions of jaws; R22.1 Localized swelling, mass and lump, neck; R51.9 Headache, unspecified; I10 Essential (primary) hypertension; E89.0 Postprocedural hypothyroidism; F32.A Depression, unspecified; F41.9 Anxiety disorder, unspecified; Z79.1 Long term (current) use of non-steroidal anti-inflammatories (NSAID); Z79.52 Long term (current) use of systemic steroids; Z79.899 Other long term (current) drug therapy; Z88.8 Allergy status to other drugs, medicaments and biological substances
CPT/HCPCS: 80053; 83605; 84145; 85025; 85651; 86140; 87040; 96361; 96365; 96367; 96375; 99283; J0696

== ENCOUNTER 2021-08-19 13:00 | Emergency (ER) | payer OTHER, SELFPAY ==
[2021-08-19 13:11] VITALS: BP 155/90; PULSE 89; RESP 16; TEMP 36.9; O2SAT 100; BMI 18.9
--- NOTE | 2021-08-19 13:21 | CT_ITS ---
FINAL REPORT TECHNIQUE: Thin section axial CT images were obtained through the neck after intravenous contrast administration. Coronal and sagittal reformats were also obtained. This study was performed with techniques to keep radiation doses as low as reasonably achievable (ALARA). Individualized dose reduction techniques using automated exposure control or adjustment of mA and/or kV according to the patient''s size were employed. CLINICAL HISTORY: pain and swelling of jaw and neck left side, marked with BB FINDINGS: A marker was placed at the left side of the face. Beneath the marker, the left masseter muscle is enlarged with low-attenuation areas within it. The appearance is worrisome for myositis or possible hemorrhage, neoplasm is not excluded but felt less likely. There is left face soft tissue swelling/inflammation. Multiple bilateral and mildly enlarged left neck nodes are identified, may be reactive. There is a retention cyst or polyp in the left maxillary sinus. IMPRESSION: Enlarged masseter muscle with low attenuation within it worrisome for myositis or possible hemorrhage, neoplasm is not excluded. Recommend continued follow-up. Mild left face adenopathy, may be reactive. Reviewed, Interpreted and Dictated by Lucian Stovall III, MD Transcribed by Abi Peterson Authenticated by Lucian Stovall III, MD on 08/19/2021 02:42:35 PM [facility]
--- NOTE | 2021-08-19 13:24 | HMH.EDGENADL ---
ED Disposition Clinical Impression: Mass of jaw Disposition: Home, Self-Care Condition on Discharge: Fair Additional Instructions: Continue taking antibiotic as prescribed. Ibuprofen 600 mg as prescribed for pain. [place] as needed for severe pain. Return to the emergency department if fever greater than 100 degrees, unable to open mouth, difficulty swallowing or breathing, uncontrollable pain. Follow-up with your nose and throat physician here at specialty clinic on 08/26/2021 at 11:15 AM. Additional instructions for CONTROLLED SUBSTANCES: You have been prescribed a medication that is a controlled substance. Controlled substances include pain medications known as opiates and sedative nerve medications known as benzodiazepines. Tramadol, fioricet, and gabapentin are also controlled substances. Some common opiates include: Codeine (such as Tylenol #3) Hydrocodone (Vicodin, Lortab, Lorcet, [place]) Oxycodone (Percocet, Percodan, Oxycodone, Oxy IR) Some common benzodiazepines include: Diazepam (Valium) Lorazepam (Ativan) Alprazolam (Xanax) Clonazepam (Klonopin) Oxazepam (Serax) All of these controlled substances are highly addictive and frequently abused. Misuse can and frequently does lead to addiction as well as overdose and . Medication should be stored in a locked cabinet or other secure storage unit. Do not store the medication in a motor vehicle. Short term supplies, 3 days or less, are prescribed because of the highly addictive nature of the medication. Any of the controlled substance medication NOT taken should be disposed of properly and NOT SAVED. The recommended method of disposing of unused medications is: Place the medicines in a sealable plastic bag. If the medicine is a solid, crush it or add water to dissolve it. Add something undesirable (cat litter, coffee grounds, etc.) Dispose of sealed bag in household trash Do not flush or pour unused medicines down a sink or drain. Controlled substances should not be shared, given away or sold. Because of the addictive nature and frequent abuse, these medications are sometimes stolen. These medications should be kept in a safe place where they cannot be stolen. Do not keep them in your car or purse. Lost or stolen prescriptions for controlled substances WILL NOT BE REFILLED in this emergency department, regardless of whether a police report was filed. Prescriptions: Hydrocod/Acet 5/325 mg [[place] 5/325mg tablet] 1 tab PO Q6HP PRN #15 tab PRN Reason: Pain Transmission Status: [facility] Referrals: Maycol Hood MD [Primary Care Provider] - Edi Drummond MD [Physician] - Owen Barnett MD [Physician] - - Critical Care Critical Care Time: No Attestation: On 08/19/21, the high probability of a clinically significant, sudden or life threatening deterioration of the following system(s) required my full and direct attention, intervention and personal management. The time I documented below is in addition to time spent performing reported procedures but includes the following listed in this critical care notation. Medical Decision Making - Medical Records Medical records reviewed: Yes: I reviewed the patient's medical records. MR Comment: Reviewed emergency department note and lab results from 08/17/2021 visit. - Nimesh Inquiry Pt receiving controlled substance: Yes Nimesh was queried for this patient: Yes Risks and benefits of using a controlled substance: were discussed with pt by me Vital Signs: 08/19/21 13:11 08/19/21 14:00 08/19/21 14:30 Temperature 98.4 F Temperature Source Oral Pulse Rate 78 73 Pulse Rate [Left Radial] 89 Respiratory Rate 16 Blood Pressure 149/94 H 127/91 H Blood Pressure [Right Arm] 155/90 H Blood Pressure Mean 112 104 Blood Pressure Mean [Right Arm] 111 02 Sat by Pulse Oximetry 100 100 100 Oxygen Delivery Method Room Air Orders (Tests/Meds):
--- NOTE | 2021-08-19 13:35 | PC.NURSE ---
pt states she has had a tubal. clear for CT
--- NOTE | 2021-08-19 13:43 | PC.NURSE ---
pt to CT
[2021-08-19 14:00] VITALS: BP 149/94; PULSE 78; O2SAT 100
[2021-08-19 14:30] VITALS: BP 127/91; PULSE 73; O2SAT 100
--- NOTE | 2021-08-19 14:34 | PC.NURSE ---
pt in room
[2021-08-19 15:00] VITALS: BP 148/102; PULSE 82; O2SAT 100
[2021-08-19 15:19] VITALS: BP 148/96; PULSE 78; RESP 20; TEMP 36.9; O2SAT 100
== END 2021-08-19 15:21 | disposition home or self-care (01) ==
PROVIDERS: Emergency Provider Emergency Medicine; PCP Family Medicine
DX: R22.0 Localized swelling, mass and lump, head (principal); E03.9 Hypothyroidism, unspecified; F41.8 Other specified anxiety disorders
CPT/HCPCS: 70491; 96374; 99284; Q9967

== ENCOUNTER 2021-12-28 14:59 | Emergency (ER) | payer OTHER, SELFPAY ==
[2021-12-28 15:45] VITALS: BP 145/86; PULSE 74; RESP 16; TEMP 36.6; O2SAT 100; BMI 18.9
--- NOTE | 2021-12-28 15:47 | HMH.EDUTC ---
[facility] [place] Disposition Clinical Impression: COVID-19 Disposition: Home, Self-Care Condition on Discharge: Good Instructions: DI for COVID-19 (Suspected or Confirmed ), Preventing the Spread of Coronavirus Discharge Instructions Additional Instructions: Drink plenty of fluids. Take tylenol or ibuprofen for pain or fever. Follow up with your regular doctor. GO TO THE ER FOR ANY WORSENING SYMPTOMS Referrals: Didi Levin APRN [Primary Care Provider] - Time of Disposition: 16:18 Medical Decision Making - Medical Records Medical records reviewed: No: I reviewed the patient's medical records. - Nimesh Inquiry Pt receiving controlled substance: No Vital Signs: 12/28/21 15:45 12/28/21 16:06 Temperature 98 F 98.0 F Temperature Source Oral Pulse Rate 74 Pulse Rate [Right Brachial] 74 Respiratory Rate 16 16 Blood Pressure 145/86 H Blood Pressure [Right Arm] 145/86 H Blood Pressure Mean [Right Arm] 105 Blood Pressure Source [Right Arm] Automatic Cuff Blood Pressure Position [Right Arm] Sitting 02 Sat by Pulse Oximetry 100 Oxygen Delivery Method Room Air [facility] [place] HPI - General Stated complaint: covid test Time Seen by Provider: 12/28/21 15:47 - History of Present Illness Provider Complaint: She has had covid-19. She is here to have a test. She states that her work will not let her return until she has a negative test. She states that she is feeling better. - Related Data Allergies Allergy/AdvReac Type Severity Reaction Status Date / Time fluoxetine [From Prozac] Allergy Verified 08/26/21 11:41 [facility] History - Hepatitis A Screen Attestation statement:: This patient has been screened for Hepatitis A risk factors. I have reviewed the patient's past medical history: Yes Medical History: Reports:: Anxiety, Cancer, Depression Denies:: Diabetes Mellitus Type 1, Diabetes Mellitus Type 2, Hypertension, Internal Pacemaker, MRSA, Seizures Other Medical History: Reports: Hypothyroidism, Thyroid Disease, Other. Denies: Blood Transfusion Reaction Comment: HPV positive Laterality Cases: Bilateral: Other Other Surgeries: Yes: , Thyroidectomy, Tubal Ligation, Other. No: Pacemaker Amputation: No Fractures: No Comment: . Thyroidectomy. Tubal Ligation. DX. hysteroscopy, with fractional D&C---03/31/2018 - Social History Smoking Status: Never smoker Alcohol Intake: never Alcohol Intake Frequency:: other Substance Use Type: denies use Occupational Status: employed Housing: house Household Members: spouse - Psychiatric History Pschychiatric History:: Reports:: Anxiety, Depression Family Hx:: No significant family history Comment: 2007- , male, 8lb. breast. 2009- Primary , male, 7lb., breast, PPTL ROS Obtained: Yes All systems reviewed & no additional complaints - Constitutional Constitutional: Reports system reviewed and no additional complaints, except as docu - Eyes Eyes: Reports system reviewed and no additional complaints, except as docu - ENT Ears, Nose, Mouth, and Throat: Reports system reviewed and no additional complaints, except as docu - Cardiovascular Cardiovascular: Reports system reviewed and no additional complaints, except as docu - Respiratory Respiratory: Reports system reviewed and no additional complaints, except as docu - Gastrointestinal Gastrointestingal: Reports: system reviewed and no additional complaints, except as docu Physical Exam - General General appearance: alert, in no apparent distress - Head Head exam: atraumatic, normocephalic, normal inspection - Eye Eye exam: Present: normal appearance, PERRL, EOMI - ENT ENT exam: Present: normal exam, normal oropharynx, mucous membranes moist, TM's normal bilaterally, normal external ear exam - Neck Neck exam: Present: normal inspection, full ROM, trachea midline. Absent: meningismus, lymphadenopathy - Chest Chest inspection: Present: normal inspection, s
[2021-12-28 16:06] VITALS: BP 145/86; PULSE 74; RESP 16; TEMP 36.7; O2SAT 100
== END 2021-12-28 16:21 | disposition home or self-care (01) ==
PROVIDERS: Emergency Provider Nurse Practitioner Family; PCP Nurse Practitioner Family
DX: U07.1 COVID-19 (principal)
CPT/HCPCS: 99212; C9803; G0463; U0003; U0005

== ENCOUNTER → 2022-01-01 14:38 | Outpatient (CLI) | payer OTHER, SELFPAY ==
--- NOTE | 2022-01-01 14:43 | US_ITS ---
FINAL REPORT CLINICAL HISTORY: LOCALIZED ENLARGED LYMPH NODES COMPARISON: 08/19/2021 CT FINDINGS: Sonographic images of the bilateral neck were obtained. There is a 5 mm cyst in the right parotid. The right submandibular gland is intact. There are several enlarged right neck nodes measuring up to 3.1 cm which are nonspecific, may be reactive or neoplastic. There is a 6 mm nodule in the left submandibular gland, nonspecific. There is an 8 mm cyst in the left parotid. Several enlarged left neck nodes are identified measuring up to 2.2 cm. IMPRESSION: Bilateral enlarged neck nodes measuring up to 3.1 cm on the right and 2.2 cm on the left. Findings are nonspecific, may be reactive or neoplastic.. Multiple bilateral enlarged neck nodes were seen on the prior CT exam however direct comparison cannot be made. Reviewed, Interpreted and Dictated by Lucian Stovall III, MD Transcribed by Abi Peterson Authenticated and [facility]
== END ==
PROVIDERS: PCP Nurse Practitioner Family; Visit Provider Nurse Practitioner Family
DX: R59.0 Localized enlarged lymph nodes (principal)
CPT/HCPCS: 76536

== ENCOUNTER 2022-04-27 15:53 | Emergency (ER) | payer OTHER, SELFPAY ==
[2022-04-27 19:38] VITALS: BP 0/0; PULSE 0; RESP 0; TEMP -17.7; TEMP 0
== END 2022-04-27 19:38 | disposition left against medical advice (07) ==
PROVIDERS: Emergency Provider Nurse Practitioner; PCP Nurse Practitioner Family
DX: R09.81 Nasal congestion (principal); Z53.21 Procedure and treatment not carried out due to patient leaving prior to being seen by health care provider; Z88.8 Allergy status to other drugs, medicaments and biological substances

== ENCOUNTER 2022-06-18 05:26 | Emergency (ER) | payer BC, OTHER, SELFPAY ==
[2022-06-18] VITALS (7 sets, daily range): BP systolic 115–129; BP diastolic 69–95; PULSE 64–82; RESP 18–19; TEMP 36.8; O2SAT 97–100; BMI 21.6
[2022-06-18 05:54] LABS: Microscopic, Urine URINE MICROSCOPIC (MICROSCOPIC)
[2022-06-18 05:57] LABS: Basophils # 0.1 K/mm3 (0-0.2); Basophils % 1.5 % (0.1-2.0); Eosinophils # 0.3 K/mm3 (0.0-0.4); Eosinophils % 4.1 % (0.1-12.0); Hemoglobin 12.9 g/dL (12.2-16.2); Lymphocytes # 1.6 K/mm3 (0.7-4.5); Lymphocytes % 23.7 % (10-50); Mean Corpuscular HGB Conc 32.3 g/dL (31.8-35.4); Mean Corpuscular Hemoglobin 28.2 pg (27.0-31.2); Mean Corpuscular Volume 87.3 fl (81-99); Mean Platelet Volume 8.1 fl (7.4-10.4); Monocytes # 0.3 K/mm3 (0.1-1.0); Monocytes % 4.8 % (1.7-9.3); Neutrophils # 4.4 K/mm3 (1.8-7.8); Platelet Count 386 K/mm3 (142-424); Red Blood Count 4.59 M/mm3 (4.20-5.40); Red Cell Distribution Width 16.1 % (11.5-17.5); White Blood Count 6.7 K/mm3 (4.8-10.8)
[2022-06-18 06:00] LABS: Appearance,Urine CLEAR (Clear); Bilirubin,Urine Negative (Negative); Blood, Urine 1+ (Negative); Color,Urine YELLOW (Yellow); Glucose,Urine (UA) Negative (Negative); Ketones,Urine Negative (Negative); Leukocyte Esterase,Urine Negative (Negative); Nitrate,Urine Negative (Negative); PH,Urine 5.5 (5.0-8.5); Protein,Urine Negative (Negative); Specific Gravity, Urine >= 1.030 (1.005-1.030); Urobilinogen,Urine 0.2 EU/dl (0.2)
[2022-06-18 06:02] LABS: Chloride 105 mmol/L (98-107); Potassium 4.1 mmoL/L (3.5-5.1); Sodium 140 mmol/L (136-145)
--- NOTE | 2022-06-18 06:03 | CT_ITS ---
PROCEDURE INFORMATION: Exam: CT Abdomen And Pelvis Without Contrast Exam date and time: 06/18/2022 6:09 AM Age: 41 years old Clinical indication: Abdominal pain; Localized; Left lower quadrant (llq); Prior surgery; Surgery type: Csection; Patient HX: Llq pain that radiates posteriorly; Additional info: L flank pain TECHNIQUE: Imaging protocol: Computed tomography of the abdomen and pelvis without contrast. Radiation optimization: All CT scans at this facility use at least one of these dose optimization techniques: automated exposure control; mA and/or kV adjustment per patient size (includes targeted exams where dose is matched to clinical indication); or iterative reconstruction. COMPARISON: [facility] CT abdomen pelvis wo con 08/31/2017 8:22 PM FINDINGS: Liver: Normal. No mass. Gallbladder and bile ducts: Normal. No calcified stones. No ductal dilation. Pancreas: Normal. No ductal dilation. Spleen: Normal. No splenomegaly. Adrenal glands: Normal. No mass. Kidneys and ureters: Normal. No hydronephrosis. Stomach and bowel: Unremarkable. No obstruction. No mucosal thickening. Appendix: The appendix is seen and is normal in appearance. Intraperitoneal space: Unremarkable. No free air. No significant fluid collection. Vasculature: Unremarkable. No abdominal aortic aneurysm. Lymph nodes: Unremarkable. No enlarged lymph nodes. Urinary bladder: Unremarkable as visualized. Reproductive: Unremarkable as visualized. Bones/joints: Unremarkable. No acute fracture. Soft tissues: Unremarkable. IMPRESSION: No definite evidence of acute abdominal or pelvic pathology. Remainder of findings as described.
[2022-06-18 06:04] LABS: Alanine Aminotransferase 20 U/L (12-78); Aspartate Amino Transferase 31 U/L (14-36); Blood Urea Nitrogen 13 mg/dl (7-17); Creatinine Clearance Estimated 72 mL/min (50-200); Estimated Glomerular Filt Rate 69 ml/min (>60); GFR (African American) 83 ML/MIN (>60)
[2022-06-18 06:05] LABS: Albumin Level 4.4 g/dl (3.5-5.0); Albumin/Globulin Ratio 1.5 (1.1-1.8); Alkaline Phosphatase 43 U/L (38-126); Anion Gap 10.1 mEq/L (5-15); Bilirubin,Total 0.5 mg/dl (0.2-1.3); Calcium 8.1 mg/dl (8.4-10.2); Carbon Dioxide 29 mmol/L (22.0-30.0); Globulin 2.9 g/dL (1.3-3.2); Glucose 80 mg/dl (74-100); Total Protein,Serum 7.3 g/dl (6.3-8.2)
[2022-06-18 06:24] LABS: Bacteria,Urine 1+ /lpf; RBC,Urine Occasional #/hpf (0-3)
--- NOTE | 2022-06-18 07:00 | HMH.EDGENADL ---
Discharge Plan Disposition Patient Disposition: Home, Self-Care Prescriptions Prescriptions: New ketorolac 10 mg tablet 10 mg PO TID PRN (Reason: pain) 3 Days Qty: 10 0RF Referrals Follow up/Referrals: Didi Levin APRN [Primary Care Provider] - See instructions Clinical Impressions Clinical Impression: Acute left flank pain Instructions Patient Instructions: DI for Flank Pain Discharge ED Provider: Alhaji Joshua General Adult HPI General Chief complaint: PAIN Stated complaint: Pain in left side Time Seen by Provider: 06/18/22 07:00 Mode of Arrival: Family Vehicle Source of Information: Patient, Spouse and Medical Record Limitations: No Limitations Description of Symptoms (Recalled from ER Triage Doc. by RN): Pt c/o left pelvic and l flank pain that began last night. States it has waxed and wane in pain level but greatly increased this morning when she was trying ot get ready for work. Denies any n/v/d. Denies any hx of kidney stones. Denies fever or chills. Denies voiding difficulty or gross hematuria. History of Present Illness HPI narrative: acute onset of lt flank pain with episodes of pain over the last day- no fever/rash or trauma - no hematuria Onset (ago): day(s) Location: abdomen Severity: moderate Consistency: colicky Associated symptoms: denies other symptoms Treatments prior to arrival: none Related Data Previous Rx's Medication Instructions Recorded ketorolac 10 mg tablet 10 mg PO TID PRN pain 3 days #10 06/18/22 tabs Allergies Allergy/AdvReac Type Severity Reaction Status Date / Time fluoxetine [From Prozac] Allergy Verified 08/26/21 11:41 [facility] Disclaimer: The information contained in this section may have been updated after the patient was seen, as this information can be updated by other users. Social History Smoking Status: Never smoker second hand exposure: No alcohol intake: never substance use type: denies use current occupational status: employed Travel in the last 8 weeks: None household members: spouse housing: house current occupation: [employer] current occupational exposures/hazards: No caffeine: Yes ROS Obtained: Yes All systems reviewed & no additional complaints except as documented Physical Exam General General appearance: alert Head Head exam: normocephalic Eye Eye exam: Present PERRL and EOMI; Absent scleral icterus ENT ENT exam: Present mucous membranes moist Neck Neck exam: Present trachea midline Respiratory Respiratory exam: Absent respiratory distress Cardiovascular Cardiovascular exam: Present regular rate Abdominal Exam Abdominal exam: Present soft; Absent tenderness, guarding or rebound Abdominal tenderness: Present suprapubic and moderate Extremities Exam Extremities exam: Absent edema Back Exam Back exam: Absent CVA tenderness (L) Neurological Exam Neurological exam: Present alert, oriented X3 and CN II-XII intact Skin Skin exam: Absent rash Medical Decision Making Medical Records Medical records reviewed: Yes I reviewed the patient's medical records. Nimesh Inquiry Pt receiving controlled substance: No Vital Signs: 06/18/22 05:28 06/18/22 06:00 06/18/22 06:30 Temperature 98.2 F Temperature Source Oral Pulse Rate 76 69 Pulse Rate [Right] 82 Respiratory Rate 19 Blood Pressure 122/80 118/81 Blood Pressure [Right Arm] 129/95 H Blood Pressure Mean 98 Blood Pressure Mean [Right Arm] 106 Blood Pressure Source [Right Arm] Automatic Cuff 02 Sat by Pulse Oximetry 100 98 97 Oxygen Delivery Method Room Air Room Air 06/18/22 07:00 06/18/22 07:30 Temperature Temperature Source Pulse Rate 66 65 Pulse Rate [Right] Respiratory Rate Blood Pressure 120/73 119/76 Blood Pressure [Right Arm] Blood Pressure Mean 96 90 Blood Pressure Mean [Right Arm] Blood Pressure Source [Right Arm] 02 Sat by Pulse Oximetry 97 97 Oxygen Delivery Method Lab Data
== END 2022-06-18 08:28 | disposition home or self-care (01) ==
PROVIDERS: Emergency Provider Emergency Medicine; PCP Nurse Practitioner Family
DX: R10.2 Pelvic and perineal pain (principal)
CPT/HCPCS: 74176; 80053; 81001; 85025; 96361; 96374; 96375; 99285; J2405

== ENCOUNTER 2022-06-24 16:42 | Emergency (ER) | payer BC, OTHER, SELFPAY ==
[2022-06-24 16:43] VITALS: BP 136/91; PULSE 85; RESP 20; TEMP 37.1; O2SAT 100; BMI 22.3
--- NOTE | 2022-06-24 16:51 | XR_ITS ---
PROCEDURE INFORMATION: Exam: XR Left Hand Exam date and time: 06/24/2022 4:51 PM Age: 41 years old Clinical indication: Pain; Hand; Left; Additional info: Left thumb pain, feels like something is popping TECHNIQUE: Imaging protocol: Radiologic exam of the Left hand. Views: 3 or more views. COMPARISON: No relevant prior studies available. FINDINGS: Bones/joints: Small bone fragment at the radial distal aspect of the 1st digit proximal phalanx. Otherwise, no acute fracture or dislocation. Joint spaces are preserved. Soft tissues: Unremarkable. IMPRESSION: 1. Small bone fragment at the radial distal aspect of the 1st digit proximal phalanx, may represent age-indeterminate fracture or ligament calcification from chronic injury. 2. Otherwise, no acute osseous abnormality.
--- NOTE | 2022-06-24 17:29 | EXP.UTC ---
Discharge Plan Disposition Patient Disposition: Home, Self-Care Condition: Good Prescriptions Prescriptions: No Action ketorolac 10 mg tablet 10 mg PO TID PRN (Reason: pain) 3 Days Qty: 10 0RF levothyroxine 100 mcg tablet 100 mcg PO DAILY Label Comments: TAKE 1 TABLET BY MOUTH ONCE DAILY IN THE MORNING ON AN EMPTY STOMACH Referrals Follow up/Referrals: Emmanuel Hernandez, [Staff Physician] - See instructions Didi Levin APRN [Primary Care Provider] - See instructions Activity Restrictions/Add. Instructions Additional Instructions/Restrictions: *RICE, Rest the extremity, Ice 15-20 minutes 3-4 times daily, Compress- wear the dayne wrap as discussed as much as possible to help reduce swelling and pain, Elevate the extremity when at rest *Finger splint is for support and help control swelling, use it except in the shower. Be sure that is not to tight but not to loose either *Elevate when resting? *Ibuprofen every 6-8 hours as needed for pain an inflammation. If need something more can take Tylenol in between doses of Ibuprofen to help Follow up with Orthopedics for further evaluation and treatment Follow up with your Family Doctor if needed Clinical Impressions Clinical Impression: Finger problem Stand Alone Forms Stand Alone Forms: Work/School Release Instructions Patient Instructions: How To Perform RICE (Rest, Ice, Compress, Elevate), Ibuprofen Discharge ED Provider: Kalli Edwards [facility] General Stated complaint: LEFT THUMB PAIN Mode of Arrival: Ambulatory Source of Information: Patient Limitations: No Limitations Time Seen by Provider: 06/24/22 17:29 Description of Symptoms (Recalled from Triage Doc. 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 turning and grasping States that on Wednesday she noticed she was having pain in her left thumb and felt like something in there was popping out of place and she has to rub it and push on her knuckle area and then it feels better until it happens again Denies known injury Related Data Home Medications Medication Instructions Recorded Confirmed levothyroxine 100 mcg tablet 100 mcg PO DAILY thyroid 06/24/22 06/24/22 Previous Rx's Medication Instructions Recorded ketorolac 10 mg tablet 10 mg PO TID PRN pain 3 days #10 06/18/22 tabs Allergies Allergy/AdvReac Type Severity Reaction Status Date / Time fluoxetine [From Prozac] Allergy Verified 06/24/22 16:58 Worker's Comp Is this a Worker's Comp case?: No [facility] Disclaimer: The information contained in this section may have been updated after the patient was seen, as this information can be updated by other users. Social History Smoking Status: Never smoker second hand exposure: No alcohol intake: never substance use type: denies use current occupational status: employed Travel in the last 8 weeks: None household members: spouse housing: house current occupation: [employer] current occupational exposures/hazards: No caffeine: Yes ROS Obtained: Yes All systems reviewed & no additional complaints except as documented and Yes Systems reviewed as appropriate & no additional complaints except as documented Constitutional Constitutional: Reports system reviewed and no additional complaints, except as documented and Reports as per HPI Cardiovascular Cardiovascular: Reports system reviewed and no additional complaints, except as documented and Reports as per HPI Respiratory Respiratory: Reports system reviewed and no additional complain
[2022-06-24 18:00] VITALS: BP 130/77; PULSE 86; RESP 20; TEMP 36.8; O2SAT 97
== END 2022-06-24 18:00 | disposition home or self-care (01) ==
PROVIDERS: Emergency Provider Nurse Practitioner; PCP Nurse Practitioner Family
DX: M79.645 Pain in left finger(s) (principal)
CPT/HCPCS: 73130; 99213; G0463

== ENCOUNTER 2024-06-20 15:02 | Outpatient (CLI) | payer OTHER, SELFPAY ==
[2024-06-20 15:57] LABS: Hemoglobin 11.7 g/dL (12.2-16.2); Mean Corpuscular Hemoglobin 23.5 pg (27.0-31.2); Mean Corpuscular Volume 78.3 fl (81-99); Mean Platelet Volume 10.7 fl (7.4-10.4); Neutrophils % 79.6 % (37.0-80.0); Platelet Count 363 K/mm3 (142-424); Red Blood Count 4.98 M/mm3 (4.20-5.40); Red Cell Distribution Width 20.5 % (11.5-17.5); White Blood Count 6.5 K/mm3 (4.8-10.8)
[2024-06-20 15:58] LABS: Basophils # 0.1 K/mm3 (0-0.2); Basophils % 0.8 % (0.1-2.0); Eosinophils # 0.1 K/mm3 (0.0-0.4); Eosinophils % 1.4 % (0.1-12.0); Lymphocytes # 0.8 K/mm3 (0.7-4.5); Lymphocytes % 12.8 % (10-50); Monocytes # 0.3 K/mm3 (0.1-1.0); Monocytes % 4.9 % (1.7-9.3); Neutrophils # 5.2 K/mm3 (1.8-7.8)
[2024-06-20 16:05] LABS: D-Dimer < 0.25 ug/mL (0.0-0.5)
[2024-06-20 16:30] LABS: Alanine Aminotransferase 29 U/L (12-78); Alkaline Phosphatase 53 U/L (38-126); Aspartate Amino Transferase 49 U/L (14-36); Bilirubin,Direct 0.4 mg/dl (0.0-0.4); Bilirubin,Indirect 0.1 mg/dL (0.0-0.9); Bilirubin,Total 0.5 mg/dl (0.2-1.3); Bilirubin,Unconjugated 0.1 mg/dL (0.0-1.1); Blood Urea Nitrogen 10 mg/dl (7-17); Calcium 9.7 mg/dl (8.4-10.2); Carbon Dioxide 25 mmol/L (22.0-30.0); Chloride 103 mmol/L (98-107); Cholesterol 255 mg/dl (140-200); Estimated Glomerular Filt Rate 91 ml/min (>60); GFR (African American) 111 ML/MIN (>60); Glucose 75 mg/dl (74-100); Magnesium 1.7 mg/dl (1.6-2.3); Sodium 136 mmol/L (136-145); Total Protein,Serum 7.3 g/dl (6.3-8.2); Triglycerides 325 mg/dl (30-150); VLDL Cholesterol 65 mg/dL (0-40)
[2024-06-20 16:39] LABS: Chol/HDL Ratio 1.5 (1-3.5); HDL Cholesterol 171 mg/dl (40-60); NT Pro Brain Natriuretic Pep. < 20.0 pg/mL (0-125)
== END 2024-06-20 23:59 | disposition home or self-care (01) ==
LOC: LAB 15:03
PROVIDERS: PCP Nurse Practitioner Family; Visit Provider Internal Medicine
DX: R00.2 Palpitations (principal); R55 Syncope and collapse; R06.00 Dyspnea, unspecified; Z82.49 Family history of ischemic heart disease and other diseases of the circulatory system
CPT/HCPCS: 36415; 80048; 80061; 80076; 83735; 83880; 84439; 84443; 85025; 85378; 93270

== ENCOUNTER 2024-06-28 07:43 | Outpatient (CLI) | payer OTHER, SELFPAY ==
[2024-06-28 07:55] VITALS: BMI 23.6
[2024-06-28 07:56] VITALS: BMI 23.6
--- NOTE | 2024-06-28 08:17 | CT_ITS ---
APPROVED REPORT Senior Java Programmer Analyst: CLINICAL INDICATION Chest Pain TECHNIQUE Image Acquisition: A 128 slice MDCT scanner (OSIsofta View) was used for data acquisition. A noncontrast coronary calcium scan was performed. A CT attenuation threshold of 130 Hounsfield units (HU) was used for the detection of calcium in contiguous voxels of 1 sq mm in area to be counted as individual lesions. Bolus tracking in the ascending aorta with a threshold of 180 HU was performed. Immediately afterwards, ECG synchronized cardiac CT was then performed from the cardiac base to apex using retrospective gating with ECG tube current modulation. A total of 85 mL of Isovue 370 mg/mL contrast medium was administered at 5 mL/sec followed by a saline flush using a biphasic injection protocol. A tube voltage of 120 KVp was used. The patient received the following medications prior to the cardiac CT. 25 mg of oral metoprolol 0.8mg of sublingual nitroglycerin The average heart rate at the time of acquisition was 57 bpm and regular. Image Reconstruction Transaxial images were reconstructed at 0.67 mm slide thickness. Data was reviewed interactively on an advanced workstation capable of 2 and 3-dimensional displays in all conventional reconstruction formats, including multiplanar reformations, maximum intensity projections, curved multiplanar reformations, and volume rendered reconstructions. When applicable, selected routine images describing the relevant coronary anatomy and pathology were saved and sent to PACS. Complications None Technical Quality Overall image quality was good. Coronary artery opacification was adequate. Total DLP (Dose-Length Product) is 1641.7 mGy-cm. The reported value represents the total of one or more individual components during the CT acquisition of this date and at this time, and as such, the same value may appear in more than one CT report depending on the interpreting/reporting physicians. COMPARISON None FINDINGS CT Coronary Calcium Scoring LMA (Left Main Artery) = 0 LAD (Left Anterior Descending) = 0 LCX (Left Coronary Circumflex) = 0 RCA (Right Coronary Artery) = 0 Total Calcium Score = 0 using the AJ-130 method. The interpretation of the calcium heart score is based on the following continuum*: 0 = no calcified plaque detected (risk of coronary artery disease is very low ??? less than 5%) 1-10 = calcium detected in extremely minimal levels (risk of coronary diseases is still low ??? less than 10%) 11-100 = mild levels of plaque detected with certainty (mild or minimal narrowing of heart arteries is likely) 101-400 = definite,at least moderate levels of plaque detected (relatively high risk of a heart attack within 3-5 years) >401-999 = extensive levels of plaque detected (high risk of heart attack, high levels of vascular disease are present, high likelihood of at least one significant coronary narrowing) *The calcium heart score quantifies the burden of coronary calcification/plaque in the coronary arteries. The calcium heart score is not able to evaluate the presence or burden of non-calcified (i.e. soft) plaque. There is no identifiable calcification in the aortic valve, mitral annulus or mitral valve, pericardium, or myocardium. Coronary CT Angiography The coronary arterial system is right dominant. Quantitative Stenosis Grading: Left Main (LM): The left main originates normally from the left sinus of Valsalva. The LM bifurcates into the left anterior descending artery and left circumflex artery. The LM is patent with no evidence of atherosclerosis. Left Anterior Descending (LAD) and Diagonal Branches: The LAD gives off 3 diagonal branch(es). The LAD and its branches are patent with no evidence of atherosclerosis. There is no evidence of LAD-myocardial bridge. Left Circumflex (LCX) and Obtuse Marginals (OM): The LCX gives off 1 Obtuse Marginal (OM) branch(es). The LCX and its branches are patent with no evidence of atherosclerosis. Right Coronary Artery (RCA): The RCA originates normally from the right sinus of Valsalva. The RCA gives off a posterior descending artery (PDA) and posterolateral (PL) branches. The RCA and its branches are patent with no evidence of atherosclerosis. Non-Coronary Cardiac Findings: Analysis of the left ventricular (LV) structure and function was performed after 3-D reconstruction of the LV from axial images, with user-corrected automatic contouring for assessment of LV volumes and user-defined reconstruction from oblique planes for measurement of 3-D cardiac structure and function. -The left ventricle systolic function is normal. -There is no left atrial appendage filling defect. Two right pulmonary veins and two left pulmonary veins drain normally into the left atrium. -No pericardial thickening or calcification. -Central and branch pulmonary arteries in the [id number] are unremarkable. -Thoracic aorta within the visualized thoracic aortic-branches in the [id number] is unremarkable. Extracardiac Structures No significant extra-cardiac findings. Note, however, that this study is focused on the cardiac findings. IMPRESSION -No coronary calcification with an Agatston score = 0 using the AJ-130 method. -No evidence of significant flow-limiting atherosclerosis of the coronary arteries. -No evidence of coronary anomalies or myocardial bridges. -CAD-RADS 0. Management recommendations per ACC/AHA guidelines*, as clinically appropriate. *Recommendations: CAD RADS 0: Reassurance. Consider non-atherosclerotic causes of chest pain. CAD RADS 1: Consider non-atherosclerotic causes of chest pain. Consider preventive therapy and risk factor modification. CAD RADS 2: Consider non-atherosclerotic causes of chest pain. Consider preventive therapy and risk factor modification, particularly for patients with nonobstructive plaque in multiple segments. CAD RADS 3: Consider further functional testing. Consider symptom-guided anti-ischemic and preventive pharmacotherapy as well as risk factor modification per published guideline statements. CAD RADS 4A: Consider further functional testing or invasive coronary angiography with revascularization per published guideline statements. Consider symptom-guided anti-ischemic and preventive pharmacotherapy as well as risk factor modification per published guideline statements. CAD RADS 4B: Invasive coronary angiography recommended with revascularization per published guideline statements. Consider symptom-guided anti-ischemic and preventive pharmacotherapy as well as risk factor modification per published guideline statements. CAD RADS 5: Consider invasive angiography and/or viability assessment with revascularization per published guideline statements. Consider symptom-guided anti-ischemic and preventive pharmacotherapy as well as risk factor modification per published guideline statements. CRITICAL RESULT None COMMUNICATION Per this written report The coronary and cardiac findings of this CCTA were reviewed, reported, and signed by Bronson Rueda MD (Flyer Builder) Conclusion Electronically signed by : Radha Rueda MD 06/29/2024 15:42:51
[2024-06-28 08:36] VITALS: BP 142/89; PULSE 76; RESP 18; TEMP 36.8; O2SAT 100
[2024-06-28] MEDS: METOPROLOL TARTRATE 25MG TABLET 25 MG (08:45)
[2024-06-28 08:51] LABS: Urine Pregnancy, HCG Qual. Negative (Negative)
[2024-06-28 09:20] VITALS: BP 144/91; PULSE 61; RESP 16; O2SAT 100
[2024-06-28] MEDS: NITROGLYCERIN 0.4MG SL TABLET SL (09:20)
[2024-06-28 09:23] VITALS: BP 123/74; PULSE 59; RESP 16; O2SAT 100
[2024-06-28 09:26] VITALS: BP 96/58; PULSE 60; RESP 16; O2SAT 100
[2024-06-28 09:35] VITALS: BP 101/69; PULSE 66; RESP 16; O2SAT 99
[2024-06-28] MEDS: IOPAMIDOL-370 (76%);100ML BOTTLE 85 ML IV (09:35)
[2024-06-28] MEDS: 0.9 % SODIUM CHLORIDE 50 ML VIAL IV (09:35)
[2024-06-28] MEDS: SODIUM CHLORIDE 0.9% 10ML SYR (RAD ONLY) 10 ML IV (09:35)
== END 2024-06-28 09:40 | disposition home or self-care (01) ==
LOC: RT 07:44 → RAD 08:42
PROVIDERS: PCP Nurse Practitioner Family; Visit Provider Internal Medicine
DX: R00.2 Palpitations (principal); R55 Syncope and collapse; R06.00 Dyspnea, unspecified
CPT/HCPCS: 75574; 81025; 93306; Q9967

== ENCOUNTER 2024-12-05 23:59 | Emergency (ER) | payer SELFPAY ==
[2024-12-06] VITALS (8 sets, daily range): BP systolic 110–155; BP diastolic 63–111; PULSE 75–120; RESP 16–24; TEMP 36.7–36.8; O2SAT 100; BMI 21.9
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
--- OUTSIDE RECORDS SUMMARY | 2024-12-06 00:05 | XMS_ITS | Clinical Summary ---
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 Name Role Phone Unavailable Primary Care Provider Unavailabl e Allergies No known active allergies Medications fluticasone (FLONASE) 50 MCG/ACT nasal spray instill 1 SPRAY IN EACH NOSTRIL ONCE DAILY DIRECTED 01/07/2022 Active levothyroxine (SYNTHROID) 100 MCG tablet TAKE ONE TABLET BY MOUTH EVERY DAY IN THE MORNING ON an EMPTY stomach 01/05/2022 Active Active Problems No known active problems Social History Tobacco Use Types Packs/Day Years Used Date Smoking Tobacco: Never Cigarettes Smokeless Tobacco: Never Intimate Partner Violence Answer Date R ecorded Insults You Not on file 12/29/2021 Threatens You Not on file 12/29/2021 Screams at You Not on file 12/29/2021 Physically Hurt Not on file 12/29/2021 Intimate Partner Violence Score Not on file 12/29/2021 Comments Unknown Sex and Gender Information Value Date Recorded Sex Assigned at Not on file Legal Sex Female 10:30 AM CDT Gender Identity Not on file Sexual Orientation Not on file Last Filed Vital Signs Vital Sign Reading Time Taken Comments Blood Pressure 120/78 01/20/2022 10:45 AM EDT Pulse 72 01/20/2022 10:45 AM EDT Temperature 36.7 C (98.1 F) 01/20/2022 10:45 AM EDT Respiratory Rate - - Oxygen Saturation 99% 01/20/2022 10:45 AM EDT Inhaled Oxygen Concentration - - Weight 51.7 kg (114 lb) 01/20/2022 10:45 AM EDT Height 158.1 cm (5' 2.25 ) 01/20/2022 10:45 AM E DT Body Mass Index 20.68 01/20/2022 10:45 AM EDT Plan of Treatment Health Maintenance Due Date Last Done Comments Dental Cleaning/Exam 1980 Cervical Cancer Screening 1996 Hepatitis B Immunization (1 of 3 - 19+ 3-dose series) 12/22/1999 Tetanus Diphtheria and Pertu ssis Immunization (1 - Tdap) 12/22/1999 Breast Cancer Screening 2010 Covid-19 Immunization (1 - 2 25 season) 2024 Influenza Immunization (Seas on Ended) 2025 HIB Immunization Aged Out No longer e ligible based on patient's age to complete this topic HPV Immunization Aged Out No longer e ligible based on patient's age to complete this topic Hepatitis A Immunization Aged Out No longer eligible based on patient's age to complete this topic Pneumococcal: Ped (0 to 5 Yr s) and At-Risk Member (6 to 64 Yrs) Aged Out No longer e ligible based on patient's age to complete this topic Polio Immunization Aged Out No longer eligible based on patient's age to complete this topic Varicella Immunization Aged Out No lo nger eligible based on patient's age to complete this topic
--- NOTE | 2024-12-06 00:09 | ECG_ITS ---
APPROVED REPORT Exam: Resting ECG HR:123 bpm ECG Measurements Heart Rate [address] 135 P 83 QRSd 81 QRS 90 QT 339 T 74 QTc 412 Conclusion SINUS TACHYCARDIA MODERATE ST DEPRESSION [0.05+ mV ST DEPRESSION] ABNORMAL ECG UNCONFIRMED REPORT Electronically signed by : CAMERON GUTIÉRREZ, 12/06/2024 06:29:48
[2024-12-06] MEDS: SODIUM CHLORIDE 0.9% 25ML BAG 25 ML IV (00:19)
[2024-12-06] MEDS: PROMETHAZINE HCL 25MG/ML 1ML VIAL 25 MG IV (00:19)
[2024-12-06] MEDS: diazePAM 10MG/2ML SYRINGE 10 MG IV (00:20)
[2024-12-06] MEDS: LACTATED RINGERS 1000ML 1,000 ML 999 ML IV (00:20)
[2024-12-06 00:30] LABS: Basophils # 0.1 K/mm3 (0-0.2); Basophils % 0.9 % (0.1-2.0); Eosinophils % 0.4 % (0.1-12.0); Hematocrit 36.4 % (37.0-47.0); Hemoglobin 11.4 g/dL (12.2-16.2); Immature Granulocytes # 0.04 10^3uL; Immature Granulocytes % 0.6 %; Lymphocytes # 1.6 K/mm3 (0.7-4.5); Lymphocytes % 22.6 % (10-50); Mean Corpuscular HGB Conc 31.3 g/dL (31.8-35.4); Mean Corpuscular Hemoglobin 24.3 pg (27.0-31.2); Mean Corpuscular Volume 77.4 fl (81-99); Mean Platelet Volume 10.1 fl (7.4-10.4); Monocytes # 0.5 K/mm3 (0.1-1.0); Monocytes % 7.2 % (1.7-9.3); Neutrophils # 4.8 K/mm3 (1.8-7.8); Neutrophils % 68.3 % (37.0-80.0); Nucleated Red Blood Cells # 0 10^3/uL; Nucleated Red Blood Cells % 0 %; Platelet Count 360 K/mm3 (142-424); Red Cell Distribution Width 15.2 % (11.5-17.5); Red Cell Distribution Width-SD 42.2 fL
[2024-12-06 00:52] LABS: Activated Partial Thrombo Time 20.7 seconds (22.8-30.6); INR 0.89 (0.9-1.1)
[2024-12-06 00:58] LABS: Alanine Aminotransferase 68 U/L (12-78); Albumin Level 5.1 g/dl (3.5-5.0); Albumin/Globulin Ratio 1.4 (1.1-1.8); Alkaline Phosphatase 88 U/L (38-126); Anion Gap 21.7 mEq/L (5-15); Aspartate Amino Transferase 120 U/L (14-36); Bilirubin,Total 0.6 mg/dl (0.2-1.3); Blood Urea Nitrogen 10 mg/dl (7-17); Carbon Dioxide 19 mmol/L (22.0-30.0); Chloride 96 mmol/L (98-107); Creatine Kinase 329 U/L (30-135); Creatinine Clearance Estimated 89 mL/min (50-200); Estimated Glomerular Filt Rate 91 ml/min (>60); GFR (African American) 111 ML/MIN (>60); Globulin 3.6 g/dL (1.3-3.2); Glucose 121 mg/dl (74-100); Lipase 185 U/L (23-300); Magnesium 2.1 mg/dl (1.6-2.3); Sodium 134 mmol/L (136-145); Total Protein,Serum 8.7 g/dl (6.3-8.2)
[2024-12-06 01:00] LABS: Potassium 2.7 mmoL/L (3.5-5.1)
--- NOTE | 2024-12-06 01:00 | PC.NURSE ---
critical called from lab, potassium 2.7. notified
[2024-12-06] MEDS: POTASSIUM CHLORIDE 20MEQ TAB 60 MEQ PO (01:12)
[2024-12-06] MEDS: KCl 10mEq/100ml 100 ML 100 MEQ IV ×2 (01:12→02:36)
[2024-12-06 01:15] LABS: T4 (Thyroxine) 8.4 ug/dl (5.53-11.0)
[2024-12-06 01:25] LABS: Troponin I < 0.01 ng/ml (0.00-0.034)
[2024-12-06 01:28] LABS: Thyroid Stimulating Hormone 5.55 uIU/mL (0.465-4.68)
== END 2024-12-06 04:01 | disposition home or self-care (01) ==
PROVIDERS: Emergency Provider Emergency Medicine
DX: F10.131 Alcohol abuse with withdrawal delirium (principal); E87.6 Hypokalemia; R00.0 Tachycardia, unspecified; T43.615A Adverse effect of caffeine, initial encounter; R11.2 Nausea with vomiting, unspecified
CPT/HCPCS: 80053; 82550; 83690; 83735; 84436; 84443; 84484; 85025; 85610; 85730; 93005; 96361; 96365; 96366; 96375; 99285; J2550; J3360; J3480; J7120